=== PATIENT | female | born 1985 | race Caucasian/White ===

== ENCOUNTER 2020-05-17 07:17 | Outpatient (REF) | payer OTHER, SELFPAY ==
[2020-05-17 12:13] LABS: TSH reflex Free T4 < 0.01 mIU/mL (0.32-4.0)
[2020-05-17 12:48] LABS: Free T4 (Free Thyroxine) 1.36 ng/dL (0.71-1.85)
== END 2020-05-17 07:18 | disposition home or self-care (01) ==
LOC: HO.HMGCLDS 07:17
PROVIDERS: PCP Internal Medicine; Visit Provider Internal Medicine
DX: R94.6 Abnormal results of thyroid function studies (principal)
CPT/HCPCS: 36415; 84439; 84443

== ENCOUNTER 2020-06-06 14:46 | Outpatient (REF) | payer OTHER, SELFPAY ==
--- NOTE | 2020-06-06 14:53 | XR_ITS ---
EXAMINATION: XR FINGER, LEFT CLINICAL INFORMATION: Injury left index finger. COMPARISON: None TECHNIQUE: AP view left hand and 2 views left index finger are obtained for a total of 3 views. FINDINGS: There is no definite fracture line. No fracture fragment or destructive process or dislocation. Bony mineralization is normal. There is no joint narrowing or erosive changes. XR/XR finger LT min 2V IMPRESSION: No visible fracture or dislocation.
== END 2020-06-06 14:47 | disposition home or self-care (01) ==
LOC: HO.HMGCX 14:46
PROVIDERS: PCP Internal Medicine; Visit Provider Internal Medicine
DX: S69.92XA Unspecified injury of left wrist, hand and finger(s), initial encounter (principal); X58.XXXA Exposure to other specified factors, initial encounter; Y93.9 Activity, unspecified; Y92.9 Unspecified place or not applicable; Y99.8 Other external cause status
CPT/HCPCS: 73140

== ENCOUNTER 2020-07-05 14:27 | Outpatient (REF) | payer OTHER, SELFPAY ==
[2020-07-05 17:33] LABS: TSH reflex Free T4 0.06 mIU/mL (0.32-4.0)
[2020-07-05 18:29] LABS: Free T4 (Free Thyroxine) 1.15 ng/dL (0.71-1.85)
== END 2020-07-05 14:28 | disposition home or self-care (01) ==
LOC: HO.HMGCLDS 14:27
PROVIDERS: PCP Internal Medicine; Visit Provider Internal Medicine
DX: R79.89 Other specified abnormal findings of blood chemistry (principal)
CPT/HCPCS: 84439; 84443

== ENCOUNTER 2020-08-27 15:16 | Outpatient (REF) | payer OTHER, SELFPAY ==
[2020-08-27 18:13] LABS: Free T4 (Free Thyroxine) 0.95 ng/dL (0.71-1.85)
== END 2020-08-27 15:17 | disposition home or self-care (01) ==
LOC: HO.HMGCLDS 15:16
PROVIDERS: PCP Internal Medicine; Visit Provider Internal Medicine
DX: E03.9 Hypothyroidism, unspecified (principal)
CPT/HCPCS: 36415; 84439; 84443

== ENCOUNTER 2020-08-28 13:55 | Outpatient (REF) | payer OTHER, SELFPAY ==
[2020-08-28 16:16] LABS: Free T4 (Free Thyroxine) 0.97 ng/dL (0.71-1.85); Thyroid Stimulating Hormone 0.28 uIU/mL (0.32-4.0); Vitamin D 25-OH Total 41.7 ng/mL (>30)
[2020-08-29 02:48] LABS: Triiodothyronine T3 Total 75 ng/dL (76-181)
[2020-08-29 06:17] LABS: Thyroglobulin Antibodies <1 IU/mL (< or = 1); Thyroid Peroxidase Antibodies 51 IU/mL (<9)
[2020-09-03 14:48] LABS: Thyroid Stimulating Immunoglob <89 % baseline (<140)
[2020-09-04 22:08] LABS: Thyrotropin Receptor Antibody <1.00 IU/L (<=2.00)
== END 2020-08-28 13:56 | disposition home or self-care (01) ==
LOC: HO.LAB 13:55
PROVIDERS: PCP Internal Medicine; Referring Provider Internal Medicine; Visit Provider Internal Medicine
DX: E03.9 Hypothyroidism, unspecified (principal); E55.9 Vitamin D deficiency, unspecified
CPT/HCPCS: 36415; 82306; 83520; 84439; 84443; 84445; 84480; 86376; 86800; 99202

== ENCOUNTER 2020-09-02 07:53 | Outpatient (REF) | payer OTHER, SELFPAY ==
--- NOTE | 2020-09-02 07:58 | US_ITS ---
EXAMINATION: US THYROID CLINICAL INFORMATION: Hypothyroidism, unspecified. COMPARISON: None. TECHNIQUE: Linear transducer brown-scale and color Doppler examination with attention to the region of the thyroid. FINDINGS: SIZE: Measurements of the thyroid lobes and nodules are given in sagittal, anteroposterior and transverse dimensions respectively. Right Thyroid Lobe: 3.7 x 1.3 x 0.9 cm, volume 2.3 mL. Parenchyma: The gland echotexture is heterogeneous. Thyroid vascularity is normal. Left Thyroid Lobe: 3.2 x 1.1 x 1.0 cm, volume 1.9 mL. Parenchyma: The gland echotexture is heterogeneous. Thyroid vascularity is normal. Isthmus: 0.2 cm in maximum AP dimension. RIGHT THYROID LOBE: No nodules. ISTHMUS: No nodules. LEFT THYROID LOBE: No nodules. NODES: No lymphadenopathy is seen in the tissue surrounding the thyroid gland. US/US thyroid IMPRESSION: Bilateral heterogenous thyroid gland. No thyroid nodule seen.
== END 2020-09-02 07:54 | disposition home or self-care (01) ==
LOC: HO.US 07:53
PROVIDERS: Visit Provider Internal Medicine
DX: E03.9 Hypothyroidism, unspecified (principal)
CPT/HCPCS: 76536

== ENCOUNTER 2020-10-28 14:28 | Outpatient (REF) | payer OTHER, SELFPAY ==
[2020-10-28 17:01] LABS: Free T4 (Free Thyroxine) 0.69 ng/dL (0.71-1.85); Thyroid Stimulating Hormone 2.54 uIU/mL (0.32-4.0)
== END 2020-10-28 14:29 | disposition home or self-care (01) ==
LOC: HO.HMGCLDS 14:28
PROVIDERS: PCP Internal Medicine; Visit Provider Internal Medicine
DX: E03.9 Hypothyroidism, unspecified (principal)
CPT/HCPCS: 36415; 84439; 84443

== ENCOUNTER → 2020-10-30 13:46 | Outpatient (BNVA) | payer OTHER, SELFPAY | PROVIDERS: PCP Internal Medicine; Visit Provider Internal Medicine | DX: E03.9 Hypothyroidism, unspecified (principal); E55.9 Vitamin D deficiency, unspecified | CPT/HCPCS: 99212 ==

== ENCOUNTER 2021-01-27 14:48 | Outpatient (REF) | payer OTHER, SELFPAY ==
[2021-01-27 17:21] LABS: Free T4 (Free Thyroxine) 0.89 ng/dL (0.71-1.85); Thyroid Stimulating Hormone 2.22 uIU/mL (0.32-4.0)
== END 2021-01-27 14:49 | disposition home or self-care (01) ==
LOC: HO.HMGCLDS 14:48
PROVIDERS: PCP Internal Medicine; Visit Provider Internal Medicine
DX: E03.9 Hypothyroidism, unspecified (principal)
CPT/HCPCS: 36415; 84439; 84443

== ENCOUNTER 2021-04-23 15:21 | Outpatient (REF) | payer OTHER, SELFPAY ==
[2021-04-23 16:39] LABS: Appearance Urine CLEAR; Color Urine YELLOW; Glucose Urine UA NEG (NEG); Leukocyte Esterase Urine NEG (NEG); Nitrite Urine NEG (NEG); UACC Culture Trigger NO; Urine Blood 2+ (NEG); Urine Ketones NEG (NEG); Urine Protein NEG (NEG-TRACE)
[2021-04-23 16:58] LABS: Mucus Urine 2+ /LPF; WBC Urine 0 /HPF (0-4)
== END 2021-04-23 15:22 | disposition home or self-care (01) ==
LOC: HO.HMGCLDS 15:21
PROVIDERS: PCP Internal Medicine; Visit Provider Internal Medicine
DX: R30.0 Dysuria (principal)
CPT/HCPCS: 81001

== ENCOUNTER 2021-05-22 13:59 | Outpatient (REF) | payer OTHER, SELFPAY ==
[2021-05-22 17:02] LABS: Free T4 (Free Thyroxine) 0.87 ng/dL (0.71-1.85); Thyroid Stimulating Hormone 4.51 uIU/mL (0.32-4.0); Vitamin D 25-OH Total 41.3 ng/mL (>30)
== END 2021-05-22 14:00 | disposition home or self-care (01) ==
LOC: HO.HMGCLDS 13:59
PROVIDERS: PCP Internal Medicine; Visit Provider Internal Medicine
DX: E03.9 Hypothyroidism, unspecified (principal); E55.9 Vitamin D deficiency, unspecified
CPT/HCPCS: 36415; 82306; 84439; 84443

== ENCOUNTER 2021-06-26 14:24 | Outpatient (REF) | payer OTHER, SELFPAY ==
[2021-06-26 16:32] LABS: Alanine Aminotransferase 15 U/L (0-31); Alkaline Phosphatase 47 U/L (39-117); Aspartate Amino Transferase 23 U/L (5-31); Bilirubin Total 0.5 mg/dL (0.0-1.0); Blood Urea Nitrogen 8 mg/dL (9-16); Calcium 9.4 mg/dL (8.4-10.2); Estimated Glomerular Filt Rate > 60; Glucose Random 85 mg/dL (60-115); Total Protein 6.6 g/dL (6.5-8.0)
[2021-06-26 16:41] LABS: Anion Gap 13 (12-20); Carbon Dioxide 28 mmol/L (22-29); Chloride 102 mmol/L (96-108); Potassium 3.9 mmol/L (3.3-5.1); Sodium 139 mmol/L (135-145)
[2021-07-04 11:11] LABS: Transglutaminase Ab IgG <1.0 U/mL; Transglutaminase IgA <1.0 U/mL
[2021-07-04 14:41] LABS: Gliadin Deamidated IgA Ab 3.2 U/mL; Gliadin Deamidated IgG Ab <1.0 U/mL
== END 2021-06-26 14:25 | disposition home or self-care (01) ==
LOC: HO.LAB 14:24
PROVIDERS: PCP Internal Medicine; Referring Provider Internal Medicine; Visit Provider Nurse Practitioner
DX: K59.04 Chronic idiopathic constipation (principal); R14.0 Abdominal distension (gaseous)
CPT/HCPCS: 36415; 80053; 83516; 99202

== ENCOUNTER 2021-07-03 14:08 | Outpatient (REF) | payer OTHER, SELFPAY | END 2021-07-03 14:09 | disposition home or self-care (01) | LOC: HO.HMGCLNP 14:08 | PROVIDERS: Visit Provider Nurse Practitioner | DX: K59.04 Chronic idiopathic constipation (principal); Z11.0 Encounter for screening for intestinal infectious diseases | CPT/HCPCS: 87338 ==

== ENCOUNTER 2021-07-18 11:10 | Outpatient (REF) | payer OTHER, SELFPAY ==
[2021-07-18 14:47] LABS: Free T4 (Free Thyroxine) 0.91 ng/dL (0.71-1.85); Thyroid Stimulating Hormone 2.76 uIU/mL (0.32-4.0)
== END 2021-07-18 11:11 | disposition home or self-care (01) ==
LOC: HO.HMGCLDS 11:10
PROVIDERS: PCP Internal Medicine; Visit Provider Internal Medicine
DX: E03.9 Hypothyroidism, unspecified (principal)
CPT/HCPCS: 36415; 84439; 84443

== ENCOUNTER 2021-07-28 07:56 | Outpatient (REF) | payer OTHER, SELFPAY ==
--- NOTE | ~2021-07-28 | US_ITS ---
EXAMINATION: US ABDOMEN COMPLETE CLINICAL INFORMATION: Chronic idiopathic constipation. COMPARISON: X-ray abdomen KUB 08/02/2018. TECHNIQUE: Real-time imaging of the abdominal viscera. FINDINGS: PANCREAS: Normal. ABDOMINAL AORTA: The proximal, mid, and distal segments are normal in caliber. INFERIOR VENA CAVA: Visualized portions are normal. LIVER: Normal. The liver is normal in size. The liver contour is normal. Parenchymal echogenicity is normal. No focal hepatic lesion. There is no intrahepatic biliary duct dilatation seen. GALLBLADDER: Normal. The gallbladder is physiologically distended without evidence of stones, sludge, polyps, wall thickening or pericholecystic fluid. COMMON BILE DUCT: Normal in caliber measuring 0.5 cm in diameter. RIGHT KIDNEY: No hydronephrosis. No renal calculi or focal parenchymal lesions. The kidney measures 12.0 cm in maximum dimension. LEFT KIDNEY: Normal. No hydronephrosis. No renal calculi or focal parenchymal lesions. The kidney measures 11.3 cm in maximum dimension. SPLEEN: Normal. The spleen measures 9.4 cm in maximum dimension. FREE FLUID: None. US/US abdomen complete IMPRESSION: Unremarkable exam.
[2021-07-28 08:11] LABS: MANUAL DIFF FLAG NO
[2021-07-28 08:29] LABS: Basophils Percent Auto 0.5 % (0-2); Eosinophils Absolute Auto 0.1 X10*3/uL (0.0-0.4); Eosinophils Percent Auto 1.6 % (0-4); Hematocrit 42.5 % (37.0-47.0); Hemoglobin 14.1 g/dl (12.0-16.0); Imm Gran Abs Auto 0.03 X10*3/uL (0.00-0.03); Imm Gran Pct Auto 0.3 % (0.0-0.4); Lymphocytes Absolute Auto 1.7 X10*3/uL (1.2-4.9); Lymphocytes Percent Auto 18.8 % (20-40); Mean Corpuscular HGB Conc 33.2 g/dl (31.0-35.0); Mean Corpuscular Hemoglobin 31.5 pg (27.0-33.0); Mean Corpuscular Volume 95.1 fL (80.0-98.0); Mean Platelet Volume 10.8 fL (9.4-12.3); Monocytes Absolute Auto 0.8 X10*3/uL (0.1-1.2); Monocytes Percent Auto 8.5 % (2-11); Neutrophils Absolute Auto 6.2 x10*3/uL (2.0-8.3); Neutrophils Percent Auto 70.3 % (45-73); Platelet Count 298 X10*3/uL (160-400); Red Blood Count 4.47 X10*6/uL (4.20-5.50); Red Cell Distribution Width 11.9 % (11.0-16.0); White Blood Count 8.8 X10*3/uL (4.8-10.8)
[2021-07-28 08:55] LABS: Alanine Aminotransferase 15 U/L (0-31); Albumin Level 4.3 g/dL (3.5-5.0); Alkaline Phosphatase 51 U/L (39-117); Anion Gap 11 (12-20); Aspartate Amino Transferase 23 U/L (5-31); Blood Urea Nitrogen 12 mg/dL (9-16); Calcium 9.5 mg/dL (8.4-10.2); Carbon Dioxide 26 mmol/L (22-29); Chloride 105 mmol/L (96-108); Cholesterol 201 mg/dL; Estimated Glomerular Filt Rate > 60; Glucose Fasting 85 mg/dL (60-99); HDL Cholesterol 62 mg/dL; LDL Cholesterol Calculated 124 mg/dl; Potassium 4.1 mmol/L (3.3-5.1); Sodium 138 mmol/L (135-145); Total Protein 7.3 g/dL (6.5-8.0); Triglycerides 78 mg/dL
== END 2021-07-28 07:57 | disposition home or self-care (01) ==
LOC: HO.US 07:56
PROVIDERS: Absent Provider Internal Medicine; PCP Internal Medicine; Visit Provider Nurse Practitioner
DX: Z00.01 Encounter for general adult medical examination with abnormal findings (principal); K59.04 Chronic idiopathic constipation; E03.9 Hypothyroidism, unspecified
CPT/HCPCS: 36415; 76700; 80053; 80061; 85025

== ENCOUNTER 2021-08-06 18:36 | Outpatient (REF) | payer OTHER, SELFPAY | END 2021-08-06 18:37 | disposition home or self-care (01) | LOC: HO.LNP 18:36 | PROVIDERS: Visit Provider Physician Assistant Medical | DX: J02.9 Acute pharyngitis, unspecified (principal) | CPT/HCPCS: 87071 ==

== ENCOUNTER → 2021-09-01 16:03 | Outpatient (BNVA) | payer OTHER, SELFPAY | PROVIDERS: PCP Internal Medicine; Referring Provider Internal Medicine; Visit Provider Nurse Practitioner | DX: K59.04 Chronic idiopathic constipation (principal); R14.0 Abdominal distension (gaseous) | CPT/HCPCS: 99212 ==

== ENCOUNTER → 2021-09-25 16:08 | Outpatient (BNVA) | payer OTHER, SELFPAY | PROVIDERS: PCP Internal Medicine; Referring Provider Internal Medicine; Visit Provider Nurse Practitioner | DX: K59.04 Chronic idiopathic constipation (principal) | CPT/HCPCS: 99212 ==

== ENCOUNTER 2021-12-30 14:38 | Outpatient (REF) | payer OTHER, SELFPAY ==
[2021-12-30 17:12] LABS: Free T4 (Free Thyroxine) 0.87 ng/dL (0.71-1.85); Thyroid Stimulating Hormone 1.96 uIU/mL (0.32-4.0); Vitamin D 25-OH Total 28.6 ng/mL (>30)
== END 2021-12-30 14:39 | disposition home or self-care (01) ==
LOC: HO.HMGCLDS 14:38
PROVIDERS: PCP Internal Medicine; Visit Provider Internal Medicine
DX: E55.9 Vitamin D deficiency, unspecified (principal); E03.9 Hypothyroidism, unspecified
CPT/HCPCS: 36415; 82306; 84439; 84443

== ENCOUNTER → 2022-01-01 11:21 | Outpatient (BNVA) | payer OTHER, SELFPAY | PROVIDERS: PCP Internal Medicine; Visit Provider Internal Medicine | DX: E03.9 Hypothyroidism, unspecified (principal) ==

== ENCOUNTER 2022-01-29 15:20 | Outpatient (REF) | payer OTHER, SELFPAY ==
--- NOTE | ~2022-01-29 | US_ITS ---
EXAMINATION: US THYROID CLINICAL INFORMATION: Hypothyroidism, unspecified. COMPARISON: US thyroid 09/02/2020. TECHNIQUE: Linear transducer grayscale and color Doppler examination with attention to the region of the thyroid. FINDINGS: SIZE: Measurements of the thyroid lobes and nodules are given in sagittal, anteroposterior and transverse dimensions respectively. Right Thyroid Lobe: 3.9 x 1.3 x 1.3 cm, volume 3.5 mL. Previously 3.7 x 1.3 x 0.9 cm, volume 2.3 mL. Parenchyma: The gland echotexture is heterogeneous. Thyroid vascularity is normal. Left Thyroid Lobe: 3.5 x 1.1 x 1.2 cm, volume 2.4 mL. Previously 3.2 x 1.1 x 1.0 cm, volume 1.9 mL. Parenchyma: The gland echotexture is heterogeneous. Thyroid vascularity is normal. Isthmus: 0.2 cm in maximum AP dimension. Previously 0.2 cm. No focal thyroid nodule is seen. NODES: No lymphadenopathy is seen in the tissue surrounding the thyroid gland. US/US thyroid IMPRESSION: Unremarkable thyroid ultrasound.. ACR TI-RADS RECOMMENDATION REFERENCE: Ultrasound-guided fine-needle aspiration, followup ultrasound, no further follow up. * TR1 (0 point) and TR 2 (2 points): No FNA or follow up * TR3 (3 points): FNA if more than or equal to 2.5 cm in maximum dimension, followup ultrasound in 1, 3 and 5 years if 1.5 to 2.4 cm in maximum dimension. * TR4 (4-6 points): FNA if more than or equal to 1.5 cm in maximum dimension, followup ultrasound in 1, 2, 3 and 5 years if 1 to 1.4 cm in maximum dimension. * TR5 (more than or equal to 7 points): FNA if more than or equal to 1 cm in maximum dimension, followup ultrasound every year for 5 years if 0.5 to 0.9 cm in maximum dimension. * TR3, TR4 or TR5 nodules that are below the size threshold for follow up receive no follow up.
== END 2022-01-29 15:21 | disposition home or self-care (01) ==
LOC: HO.HMGCX 15:20
PROVIDERS: Visit Provider Internal Medicine
DX: E03.9 Hypothyroidism, unspecified (principal)
CPT/HCPCS: 76536

== ENCOUNTER 2022-02-27 07:08 | Outpatient (REF) | payer OTHER, SELFPAY ==
[2022-02-27 12:18] LABS: Free T4 (Free Thyroxine) 0.91 ng/dL (0.71-1.85); Thyroid Stimulating Hormone 3.86 uIU/mL (0.32-4.0)
== END 2022-02-27 07:09 | disposition home or self-care (01) ==
LOC: HO.HMGCLDS 07:08
PROVIDERS: Visit Provider Internal Medicine
DX: E03.9 Hypothyroidism, unspecified (principal)
CPT/HCPCS: 36415; 84439; 84443

== ENCOUNTER → 2022-03-02 13:46 | Outpatient (BNVA) | payer OTHER, SELFPAY | PROVIDERS: PCP Internal Medicine; Visit Provider Internal Medicine | DX: E03.9 Hypothyroidism, unspecified (principal); E55.9 Vitamin D deficiency, unspecified; Z79.899 Other long term (current) drug therapy | CPT/HCPCS: 99212 ==

== ENCOUNTER 2022-03-24 14:09 | Outpatient (REF) | payer OTHER, SELFPAY ==
[2022-03-24 17:16] LABS: Folate 16.4 ng/mL (> or = 4.0); Vitamin B12 453 pg/mL (200-900)
== END 2022-03-24 14:10 | disposition home or self-care (01) ==
LOC: HO.HMGCLDS 14:09
PROVIDERS: PCP Internal Medicine; Visit Provider Nurse Practitioner Family
DX: G57.92 Unspecified mononeuropathy of left lower limb (principal)
CPT/HCPCS: 36415; 82607; 82746

== ENCOUNTER 2022-04-24 14:37 | Outpatient (REF) | payer OTHER, SELFPAY ==
[2022-04-24 17:12] LABS: Thyroid Stimulating Hormone 1.63 uIU/mL (0.32-4.0); Vitamin D 25-OH Total 36.3 ng/mL (>30)
== END 2022-04-24 14:38 | disposition home or self-care (01) ==
LOC: HO.HMGCLDS 14:37
PROVIDERS: Visit Provider Internal Medicine
DX: E55.9 Vitamin D deficiency, unspecified (principal); E03.9 Hypothyroidism, unspecified
CPT/HCPCS: 36415; 82306; 84439; 84443

== ENCOUNTER 2022-07-01 13:59 | Outpatient (REF) | payer OTHER, SELFPAY ==
--- NOTE | 2022-07-01 09:00 | EMG_ITS ---
Please see scanned EMG / Nerve Conduction Report. MTDD
== END 2022-07-01 14:00 | disposition home or self-care (01) ==
LOC: HO.NEURO 13:59
PROVIDERS: Visit Provider Internal Medicine
DX: R20.2 Paresthesia of skin (principal)
CPT/HCPCS: 95885; 95910

== ENCOUNTER 2022-07-14 12:24 | Outpatient (REF) | payer OTHER, SELFPAY ==
[2022-07-14 12:31] LABS: MANUAL DIFF FLAG NO
[2022-07-14 13:06] LABS: Basophils Absolute Auto 0.1 X10*3/uL (0.0-0.2); Basophils Percent Auto 0.7 % (0-2); Eosinophils Absolute Auto 0.1 X10*3/uL (0.0-0.4); Eosinophils Percent Auto 1.6 % (0-4); Hematocrit 40.2 % (37.0-47.0); Hemoglobin 13.2 g/dl (12.0-16.0); Imm Gran Abs Auto 0.03 X10*3/uL (0.00-0.03); Imm Gran Pct Auto 0.3 % (0.0-0.4); Lymphocytes Absolute Auto 1.8 X10*3/uL (1.2-4.9); Lymphocytes Percent Auto 19.6 % (20-40); Mean Corpuscular HGB Conc 32.8 g/dl (31.0-35.0); Mean Corpuscular Hemoglobin 31.2 pg (27.0-33.0); Mean Platelet Volume 11.2 fL (9.4-12.3); Monocytes Absolute Auto 0.5 X10*3/uL (0.1-1.2); Monocytes Percent Auto 6.1 % (2-11); Neutrophils Absolute Auto 6.4 x10*3/uL (2.0-8.3); Neutrophils Percent Auto 71.7 % (45-73); Platelet Count 335 X10*3/uL (160-400); Red Blood Count 4.23 X10*6/uL (4.20-5.50); Red Cell Distribution Width 11.8 % (11.0-16.0); White Blood Count 8.9 X10*3/uL (4.8-10.8)
[2022-07-14 13:35] LABS: Alanine Aminotransferase 14 U/L (0-31); Alkaline Phosphatase 58 U/L (39-117); Anion Gap 12 (12-20); Bilirubin Total 0.5 mg/dL (0.0-1.0); Blood Urea Nitrogen 7 mg/dL (9-16); Calcium 9.3 mg/dL (8.4-10.2); Carbon Dioxide 29 mmol/L (22-29); Chloride 104 mmol/L (96-108); Estimated Glomerular Filt Rate > 60; Glucose Random 85 mg/dL (60-115); Potassium 4.1 mmol/L (3.3-5.1); Sodium 141 mmol/L (135-145); Total Protein 6.8 g/dL (6.5-8.0)
[2022-07-14 14:04] LABS: Aspartate Amino Transferase 19 U/L (5-31)
== END 2022-07-14 12:25 | disposition home or self-care (01) ==
LOC: HO.LAB 12:24
PROVIDERS: PCP Internal Medicine; Visit Provider Nurse Practitioner
DX: Z01.818 Encounter for other preprocedural examination (principal); R10.9 Unspecified abdominal pain; K59.04 Chronic idiopathic constipation
CPT/HCPCS: 36415; 80053; 85025; 99212

== ENCOUNTER 2022-07-29 13:29 | Outpatient (REF) | payer OTHER, SELFPAY ==
--- NOTE | ~2022-07-29 | CT_ITS ---
EXAMINATION: CT ABDOMEN AND PELVIS WITH CONTRAST CLINICAL INFORMATION: Chronic idiopathic constipation COMPARISON: Abdominal ultrasound July 2021 and pelvic ultrasound August 2018 TECHNIQUE: Multidetector volumetric images were obtained from the superior aspect of the liver through the pubic symphysis following administration 85 mL of Omnipaque 350 intravenous contrast. Sagittal and coronal reformatted images were obtained on the technologist's workstation. Oral contrast: Yes This CT examination was performed using dose optimization techniques as appropriate, variously including the following: *Automated exposure control *Adjustment of mA and/or kV according to patient size (this includes techniques or standardized protocols for targeted exams where dose is matched to indication/reason for exam; i.e. extremities or head) *Use of iterative reconstruction technique DLP: 480 mGy-cm FINDINGS: LUNG BASES: The visualized lung bases are unremarkable. LIVER, GALLBLADDER, AND BILIARY TREE: The liver is normal in size, shape, and attenuation. No focal hepatic lesion or biliary ductal dilatation is present. The gallbladder is unremarkable with no evidence of radiopaque gallstones, gallbladder wall thickening, or obvious pericholecystic inflammatory changes. PANCREAS: Unremarkable. SPLEEN: Unremarkable. ADRENAL GLANDS: Unremarkable. KIDNEYS AND URETERS: The kidneys are normal in size, shape, and attenuation. No hydronephrosis, hydroureter, or calculi seen. No perinephric stranding. BLADDER: Unremarkable. GASTROINTESTINAL TRACT: There is stool throughout the colon suggestive of constipation. There is no abnormal bowel wall thickening mass or evidence of obstruction. The small and large bowel are otherwise unremarkable. The appendix is unremarkable. ABDOMINAL WALL: No significant hernia is appreciated. LYMPH NODES: Normal. VASCULAR: Unremarkable. PELVIC VISCERA: Unremarkable. OSSEOUS STRUCTURES: Unremarkable. CT/CT abdomen pelvis w IV con IMPRESSION: Constipation. Otherwise unremarkable exam. Fleischner guidelines were followed.
[2022-07-29] MEDS: Barium Sulfate Oral (Mocha) 450 ML ORAL.SUSP 900 ML PO (15:39)
[2022-07-29] MEDS: iohexoL 350 MG/ML 100 ML INFUS..BTL IV (15:40)
== END 2022-07-29 13:30 | disposition home or self-care (01) ==
LOC: HO.CT 13:29
PROVIDERS: PCP Internal Medicine; Visit Provider Nurse Practitioner
DX: K59.04 Chronic idiopathic constipation (principal); R10.9 Unspecified abdominal pain
CPT/HCPCS: 74177; Q9967

== ENCOUNTER 2022-08-31 13:26 | Outpatient (REF) | payer OTHER, SELFPAY ==
[2022-08-31 17:04] LABS: Free T4 (Free Thyroxine) 1.09 ng/dL (0.71-1.85); Thyroid Stimulating Hormone 0.61 uIU/mL (0.32-4.0)
== END 2022-08-31 13:27 | disposition home or self-care (01) ==
LOC: HO.HMGCLDS 13:26
PROVIDERS: PCP Internal Medicine; Visit Provider Internal Medicine
DX: E03.9 Hypothyroidism, unspecified (principal); E55.9 Vitamin D deficiency, unspecified
CPT/HCPCS: 36415; 82306; 84439; 84443

== ENCOUNTER → 2022-10-21 10:48 | Outpatient (BNVA) | payer OTHER, SELFPAY | PROVIDERS: PCP Internal Medicine; Visit Provider Internal Medicine | DX: E03.9 Hypothyroidism, unspecified (principal); E55.9 Vitamin D deficiency, unspecified; Z79.899 Other long term (current) drug therapy | CPT/HCPCS: 99212 ==

== ENCOUNTER 2023-04-02 12:52 | Outpatient (AMB) | payer OTHER, SELFPAY ==
[2023-04-02 12:54] VITALS: BP 122/86; PULSE 88; O2SAT 98
--- NOTE | 2023-04-02 12:54 | A.OFFPC_ITS ---
Vital Signs 04/02/23 12:54 Height 5 ft 2.5 in BMI Reason not done Patient refused/unable BP 122/86 Blood Pressure Location Lt brachial Position Sitting Pulse 88 Pulse Source Pulse Oximeter Pulse Oximetry (%) 98 Oxygen Delivery Method Room Air Intake Visit Reasons: mole on left forearm Allergies No Known Allergies [No Known Allergies*] Allergy (Verified 04/02/23 12:58) Medication List - Last Reconciled 04/02/23 by Ana Stevens MD levothyroxine 100 mcg PO DAILY 90 days sennosides (senna) 17.2 mg (2 x 8.6 mg) PO BEDTIME 30 days valacyclovir 2,000 mg (2 x 1 gram) PO BID 1 day Tobacco use date assessed: 04/02/23 Dental Screening Dental Screen Date: 04/02/23 Did you have a dental visit in the last 12 months?: Yes Did you have a dental problem in the last 6 months where you did not have access to dental care?: No Was dental information given to patient?: No HPI mole on left forearm HPI Details Patient is a 37-year-old female came in today with a chief complaint change in mood and is in need of referral to Dermatology. She is also complaining of feeling palpitations off and on especially at night She was seeing Endocrinology for hypothyroidism but she is discharged from Endocrinology to primary care. She is due for blood test order placed to check TSH level We also did EKG today which showed normal sinus rhythm no acute findings. Patient admits to feeling anxious she has never taken any medication but she is willing to try the medication now. I am starting her on Lexapro 5 mg she is to continue taking that until she sees me in August for physical exam. If there is any problem any side effects patient is to stop the medication and reach out to me. [facility] Medical History Bowel habit changes Hyperthyroidism Hypothyroid Hypothyroidism Injury of finger of left hand Vitamin D deficiency Surgical History H/O LEEP History of section History of endometrial biopsy Family History Father No problems noted. Mother HTN (hypertension) Maternal Grandfather No problems noted. Maternal Uncle No problems noted. Paternal Grandfather Diabetes mellitus CVD (cardiovascular disease) Paternal Grandmother No problems noted. Brother No problems noted. Sister Thyroid cancer Hypothyroidism Son No problems noted. Son No problems noted. Social History Household Members: Spouse and Children Housing: House Alcohol intake: never Patient Tobacco Use Status: Never used Tobacco e-Cigarette/Vaping Use: Never Used Current occupational status: employed Cognitive needs: No Hearing needs: No Vision needs: Yes (contacts) Questionnaire Thrive Questionnaire Date Thrive assessed: 08/05/22 SHAHEED-7 AMB Questionnaire SHAHEED-7 Date SHAHEED - 7 assessed: 08/05/22 Source: Developed by Drs. Dc Keating, Kaelyn Tian, Juliano Sierra and colleagues, with an educational aba from [employer]. Review of Systems Const Denies chills and Denies fever(s) ENT Denies epistaxis and Denies nasal discharge Card Denies chest pain Resp Denies chest congestion, Denies cough and Denies hemoptysis GI Denies diarrhea and Denies nausea Skin/Breast Denies rash Neuro Reports no additional complaints Psych Reports no additional complaints Endo Reports no additional complaints Physical exam (Primary Care) Vital Signs: Last Vital Signs Pulse 88 04/02/23 12:54 BP 122/86 04/02/23 12:54 Pulse Ox 98 04/02/23 12:54 Oxygen Delivery Method Room Air 04/02/23 12:54 Tobacco/Smoking Status: Tobacco use Status Tobacco use date assessed 04/02/23 04/02/23 13:00 Patient Tobacco Use Status Never used Tobacco 04/02/23 12:57 e-Cigarette/Vaping Use Never Used 04/02/23 12:57 Thrive Assessment: Date of Thrive Assessment Date Thrive assessed 08/05/22 04/02/23 12:57 Const General: cooperative, comfortable and no acute distress Orientation/consciousness: patient oriented x3 HENMT Head: Yes normocephalic Eyes General: appearance normal, both eyes and all related structures Neck Neck: Yes supple Resp Effort & Inspection: normal respiratory effort, no cough and no stridor Cardio Rhythm: regular rhythm Heart sounds: S1 normal heart sound present and S2 normal heart sound present Skin Other: Two raised moves in the back which looks more like a skin tags General skin exam: turgor normal Neuro General: patient oriented x3, tone normal and moves all extremities Extrem Right lower extremity: no edema Left lower extremity: no edema Office Procedures EKG [id number], Complete Assessment and Plan Assessment & Plan (1) Hypothyroidism: Code(s): E03.9 - Hypothyroidism, unspecified Qualifiers: Hypothyroidism type: unspecified Qualified Code(s): E03.9 - Hypothyroidism, unspecified (2) Palpitations: Code(s): R00.2 - Palpitations (3) Change in mole: Code(s): D22.9 - Melanocytic nevi, unspecified (4) Anxiety, generalized: Code(s): F41.1 - Generalized anxiety disorder Plan Patient is a 37-year-old female came in today with a chief complaint change in mood and is in need of referral to Dermatology. She is also complaining of feeling palpitations off and on especially at night She was seeing Endocrinology for hypothyroidism but she is discharged from Endocrinology to primary care. She is due for blood test order placed to check TSH level We also did EKG today which showed normal sinus rhythm no acute findings. Patient admits to feeling anxious she has never taken any medication but she is willing to try the medication now. I am starting her on Lexapro 5 mg she is to continue taking that until she sees me in August for physical exam. If there is any problem any side effects patient is to stop the medication and reach out to me. Orders: Orders TSH reflex Free T4 Today E03.9 - Hypothyroidism, unspecified AMB EKG-In Office Today R00.2 - Palpitations Referrals Dermatology Referral D22.9 - Melanocytic nevi, unspecified Medications: New escitalopram oxalate (Lexapro) 5 mg PO DAILY 90 tabs 0RF Coding Level of Care Code Est Pt Level 4 (46351) Diagnoses Hypothyroidism E03.9 Hypothyroidism type: unspecified Palpitations R00.2 Change in mole D22.9 Anxiety, generalized F41.1 CPT Codes EKG - CPT: 53148-[id number], Complete ([id number])
== END 2023-04-02 14:43 | disposition home or self-care (01) ==
PROVIDERS: PCP Internal Medicine; Visit Provider Internal Medicine
DX: E03.9 Hypothyroidism, unspecified (principal); R00.2 Palpitations; D22.9 Melanocytic nevi, unspecified; F41.1 Generalized anxiety disorder
CPT/HCPCS: 93000; 99214

== ENCOUNTER 2023-04-02 14:01 | Outpatient (REF) | payer OTHER, SELFPAY ==
[2023-04-02 17:11] LABS: TSH reflex Free T4 2.16 uIU/mL (0.32-4.0)
== END 2023-04-02 14:02 | disposition home or self-care (01) ==
LOC: HO.HMGCLDS 14:01
PROVIDERS: PCP Internal Medicine; Visit Provider Internal Medicine
DX: E03.9 Hypothyroidism, unspecified (principal)
CPT/HCPCS: 36415; 84443

== ENCOUNTER 2023-06-18 15:02 | Outpatient (AMB) | payer OTHER, SELFPAY ==
--- NOTE | 2023-06-18 15:02 | AM.OFFVISNUR ---
Intake Intake Visit Reasons: Flu Shot Intake Note: pt is here for her flu vaccine Allergies No Known Allergies [No Known Allergies*] Allergy (Verified 06/18/23 15:03) Office Procedures Flu Questionnaire Does the patient have a severe egg allergy?: No Does the patient have severe life threatening allergies?: No Does the patient have a fever or illness today?: No Has the patient ever had Guillain-[place] Syndrome?: No Has the patient ever had any past reaction to a flu shot?: No Immunizations flu vacc [id number] 6mos up(PF) 60 mcg(15 mcgx4)/0.5 mL IM syringe Performing Provider: Ana Stevens MD Performing Location: [facility] [place] [facility] Administered by: Cynthia Goldstein CMA on 06/18/23 15:08 Dose Route Admin Location Dispensed Lot Number Expiration Date [employer] 0.5 mL IM Left Deltoid 0.5 mL [id number] 02/13/24 29683-345-35 Energy VIS Given Date VIS Provided VIS Publication Date 06/18/23 Single Vaccine 21 Eligibility Eligibility Date Funding Source Not [facility] Eligible 06/18/23 Private Coding Assessment & Plan Assessment & Plan Orders: Orders Influenza [id number] Immunization Today Z23 - Encounter for immunization
== END 2023-06-18 15:16 | disposition home or self-care (01) ==
LOC: HO.HMGC 15:02
PROVIDERS: PCP Internal Medicine; Visit Provider Internal Medicine
DX: Z23 Encounter for immunization (principal)
CPT/HCPCS: 90471; 90686

== ENCOUNTER 2023-08-20 15:38 | Outpatient (AMB) | payer OTHER, SELFPAY ==
--- NOTE | 2023-08-20 15:41 | MHC.PC.OV ---
Vital Signs 08/20/23 15:42 Height 5 ft 2.5 in Weight 176 lb 8 oz BMI 31.8 BP 126/84 Blood Pressure Location Lt brachial Position Sitting Pulse 82 Pulse Source Pulse Oximeter Pulse Oximetry (%) 99 Oxygen Delivery Method Room Air Intake Visit Reasons: Annual PE Allergies No Known Allergies [No Known Allergies*] Allergy (Verified 08/20/23 15:42) Medication List - Last Reconciled 08/20/23 by Ana Stevens MD escitalopram oxalate (Lexapro) 5 mg PO DAILY levothyroxine 100 mcg PO DAILY 90 days valacyclovir 2,000 mg (2 x 1 gram) PO BID 1 day Tobacco use date assessed: 08/20/23 Dental Screening Dental Screen Date: 08/20/23 Did you have a dental visit in the last 12 months?: Yes Did you have a dental problem in the last 6 months where you did not have access to dental care?: No Was dental information given to patient?: Patient has dentist HPI Annual PE HPI Details Patient is a 38-year-old female who continued to have palpitations Patient also have anxiety disorder and is doing better with Lexapro 5 mg I am ordering Holter monitor for the patient and referral placed for her to see a web applications administrator Patient sees [facility] breast exam is through them She is due for labs patient is currently on 88 mcg of levothyroxine for hypothyroidism Follow-up 6 months physical exam 1 year [facility] Medical History Bowel habit changes Vitamin D deficiency Hyperthyroidism Hypothyroidism Injury of finger of left hand Hypothyroid Surgical History History of endometrial biopsy History of section H/O LEEP Family History Father No problems noted. Mother HTN (hypertension) Maternal Grandfather No problems noted. Maternal Uncle No problems noted. Paternal Grandfather Diabetes mellitus CVD (cardiovascular disease) Paternal Grandmother No problems noted. Brother No problems noted. Sister Thyroid cancer Hypothyroidism Son No problems noted. Son No problems noted. Social History Household Members: Spouse and Children Housing: House Alcohol intake: never Patient Tobacco Use Status: Never used Tobacco e-Cigarette/Vaping Use: Never Used Current occupational status: employed Cognitive needs: No Hearing needs: No Vision needs: Yes (contacts) Questionnaire PHQ-9 Over the last 2 weeks, how often have you been bothered by any of the following problems? 1. Little interest or pleasure in doing things: not at all 2. Feeling down, depressed, or hopeless: not at all 3. Trouble falling or staying asleep, or sleeping too much: not at all 4. Feeling tired or having little energy: several days 5. Poor appetite or overeating: not at all 6. Feeling bad about yourself - or that you are a failure or have let yourself or your family down: not at all 7. Trouble concentrating on things, such as reading the newspaper or watching television: not at all 8. Moving or speaking so slowly that other people could have noticed. Or the opposite - being so fidgety or restless that you have been moving around a lot more than usual: not at all 9. Thoughts that you would be better off or of hurting yourself in some way: not at all Total score: 1 Depression Screening Interpretation: Negative Depression Screening Done: Yes 60417 - PHQ-9 Billing: Yes Source: Developed by Drs. Dc Keating, Kaelyn Tian, Juliano Sierra and colleagues, with an educational aba from [employer]. Thrive Questionnaire Date Thrive assessed: 08/20/23 I am a: Patient What is your living situation today?: I have a steady place to live Within the past 12 months, did the food you bought not last and you didn't have the money to get more?: Never true Within the past 12 months, did you worry whether your food would run out before you got money to buy more?: Never true Do you have trouble paying for medicines?: No Do you have trouble getting transportation to medical appointments?: No Do you have trouble paying your heating and electricity bill?: No Do you have trouble taking care of your child, family member or friend?: No Do you have trouble with day-to-day activities such as bathing, preparing meals, shopping, managing finances, etc.?: No Are you currently unemployed and looking for a job?: No Are you interested in more education?: No Please select the resources that you would like help with: None Currently or been in a relationship where the following occur: no concerns reported AUDIT C Alcohol Use Questionnaire (AUDIT-C) 1. How often do you have a drink containing alcohol?: 2-4 times a month 2. How many drinks containing alcohol do you have on a typical day when you are drinking?: 1 or 2 3. How often do you have six or more drinks on one occasion?: Never Total Score: 2 SHAHEED-7 AMB Questionnaire SHAHEED-7 Date SHAHEED - 7 assessed: 08/20/23 Feeling nervous, anxious, or on edge: 1 = Several days Not being able to stop or control worryin = Not at all Worrying too much about different things: 0 = Not at all Trouble relaxin = Several days Being so restless that it is hard to sit still: 0 = Not at all Becoming easily annoyed or irritable: 0 = Not at all Feeling afraid as if something awful might happen: 0 = Not at all Total SHAHEED-7 score (0-4 normal; 5-9 mild; 10-14 moderate; 15-21 severe): 2 Source: Developed by Drs. Dc Keating, Kaelyn Tian, Juliano Sierra and colleagues, with an educational aba from [employer]. SHAHEED-7 Assessment Billing SHAHEED-7 Assessment Tool: SHAHEED-7 Assessment 59430 Review of Systems Const Denies chills, Denies fever(s) and Denies headache(s) Eyes Denies blurry vision ENT Denies headache(s), Denies nasal discharge, Denies nasal obstruction, Denies odynophagia and Denies sinus pain Card Denies chest pain at rest and Denies chest pain with activity Resp Denies cough and Denies hemoptysis GI Denies diarrhea, Denies odynophagia, Denies vomiting and Denies hematemesis Reports as per HPI Musc Denies abnormal gait Skin/Breast Reports as per HPI Neuro Denies Neuro-related abnormal movements, Denies Abnormal speech present, Denies abnormal gait, Denies headache(s) and Denies Sensory deficit (Neuro) Psych Denies mood swings and Denies paranoia Endo Reports as per HPI Oswaldo/Lymph Reports as per HPI Aller/Immun Reports as per HPI Physical exam (Primary Care) Vital Signs: Last Vital Signs Pulse 82 08/20/23 15:42 BP 126/84 08/20/23 15:42 Pulse Ox 99 08/20/23 15:42 Oxygen Delivery Method Room Air 08/20/23 15:42 BMI result Body Mass Index 31.8 Tobacco/Smoking Status: Tobacco use Status Tobacco use date assessed 08/20/23 08/20/23 15:44 Patient Tobacco Use Status Never used Tobacco 08/20/23 15:44 e-Cigarette/Vaping Use Never Used 08/20/23 15:44 PHQ-9: PHQ-9 Score PHQ-9: Total score 1 08/20/23 16:00 Depression Screening Interpretation: Negative Thrive Assessment: Date of Thrive Assessment Date Thrive assessed 08/20/23 08/20/23 16:00 Currently or been in a relationship where the following occur: no concerns reported Const General: cooperative, comfortable and no acute distress Orientation/consciousness: patient oriented x3 HENMT Head: Yes normocephalic and Yes atraumatic Eyes General: appearance normal, both eyes and all related structures Pupils: Equal, round and reactive pupils present EOM: EOMs intact bilaterally Neck Neck: Yes supple and No lymphadenopathy Thyroid: Thyroid normal Lymphatic: no lymphadenopathy noted Resp Effort & Inspection: normal respiratory effort and able to speak in complete sentences Auscultation: clear to auscultation bilaterally Cardio Heart sounds: S1 normal heart sound present and S2 normal heart sound present GI Palpation (GI): Soft to palpation and nontender Auscultation: normal bowel sounds General: Yes no CVA tenderness Back/Spine/Pelvis Back: no CVA tenderness Skin General skin exam: elasticity normal and turgor normal Neuro General: patient oriented x3 and gait normal Cranial nerves: Yes Equal, round and reactive pupils present Speech: No Abnormal speech present Sensory Exam: No Sensory deficit (Neuro) Coordination: tandem gait normal and Romberg test negative Extrem General: Yes normal exam except as noted and No edema Assessment and Plan Assessment & Plan (1) Encounter for general adult medical examination with abnormal findings: Code(s): Z00.01 - Encounter for general adult medical examination with abnormal findings (2) Palpitations: Code(s): R00.2 - Palpitations (3) Hypothyroidism: Code(s): E03.9 - Hypothyroidism, unspecified Qualifiers: Hypothyroidism type: unspecified Qualified Code(s): E03.9 - Hypothyroidism, unspecified (4) Anxiety, generalized: Code(s): F41.1 - Generalized anxiety disorder Plan Patient is a 38-year-old female who continued to have palpitations Patient also have anxiety disorder and is doing better with Lexapro 5 mg I am ordering Holter monitor for the patient and referral placed for her to see a web applications administrator Patient sees [facility] breast exam is through them She is due for labs patient is currently on 88 mcg of levothyroxine for hypothyroidism Follow-up 6 months physical exam 1 year Orders: Orders TSH reflex Free T4 Today E03.9 - Hypothyroidism, unspecified, F41.1 - Generalized anxiety disorder, R00.2 - Palpitations, Z00.01 - Encounter for general adult medical examination with abnormal findings Complete Blood Count Auto Diff Today E03.9 - Hypothyroidism, unspecified, F41.1 - Generalized anxiety disorder, R00.2 - Palpitations, Z00.01 - Encounter for general adult medical examination with abnormal findings Comprehensive [place]. Panel Fast Today E03.9 - Hypothyroidism, unspecified, F41.1 - Generalized anxiety disorder, R00.2 - Palpitations, Z00.01 - Encounter for general adult medical examination with abnormal findings Lipid Panel Today E03.9 - Hypothyroidism, unspecified, F41.1 - Generalized anxiety disorder, R00.2 - Palpitations, Z00.01 - Encounter for general adult medical examination with abnormal findings ECG 3 day holter monitor Today R00.2 - Palpitations Referrals Cardiology Referral R00.2 - Palpitations Medications: Refilled escitalopram oxalate (Lexapro) 5 mg PO DAILY 90 tabs 1RF levothyroxine 100 mcg PO DAILY 90 tabs 1RF 90 days E55.9 - Vitamin D deficiency, unspecified Coding Level of Care Code Est Pt Prev Care 18-39y(86173) Diagnoses Encounter for general adult medical examination with abnormal findings Z00.01 Palpitations R00.2 Hypothyroidism, unspecified type E03.9 Hypothyroidism type: unspecified Anxiety, generalized F41.1 Additional Codes SHAHEED-7 Assessment Billing - SHAHEED-7 Assessment Tool: SHAHEED-7 Assessment 50393 ([id number])
[2023-08-20 15:42] VITALS: BP 126/84; PULSE 82; O2SAT 99; BMI 31.8
== END 2023-08-20 15:55 | disposition home or self-care (01) ==
PROVIDERS: Visit Provider Internal Medicine
DX: Z00.00 Encounter for general adult medical examination without abnormal findings (principal); R00.2 Palpitations; E03.9 Hypothyroidism, unspecified; F41.1 Generalized anxiety disorder
CPT/HCPCS: 99395

== ENCOUNTER 2023-08-21 10:01 | Outpatient (REF) | payer OTHER, SELFPAY ==
[2023-08-21 12:05] LABS: Alanine Aminotransferase 13 U/L (0-31); Alkaline Phosphatase 58 U/L (39-117); Anion Gap 13 (12-20); Aspartate Amino Transferase 22 U/L (5-31); Bilirubin Total 0.8 mg/dL (0.0-1.0); Blood Urea Nitrogen 10 mg/dL (9-16); Calcium 9.1 mg/dL (8.4-10.2); Carbon Dioxide 29 mmol/L (22-29); Chloride 102 mmol/L (96-108); Cholesterol 215 mg/dL (<200); Estimated Glomerular Filt Rate > 60; Glucose Fasting 86 mg/dL (60-99); HDL Cholesterol 76 mg/dL (>40); LDL Cholesterol Calculated 127 mg/dL (<100); Potassium 4.1 mmol/L (3.3-5.1); Sodium 140 mmol/L (135-145); TSH reflex Free T4 1.63 uIU/mL (0.32-4.0); Total Protein 7.2 g/dL (6.5-8.0); Triglycerides 62 mg/dL (<150)
== END 2023-08-21 10:02 | disposition home or self-care (01) ==
LOC: HO.HMGCLDS 10:01
PROVIDERS: PCP Internal Medicine; Visit Provider Internal Medicine
DX: Z00.01 Encounter for general adult medical examination with abnormal findings (principal); E03.9 Hypothyroidism, unspecified; R00.2 Palpitations; F41.1 Generalized anxiety disorder
CPT/HCPCS: 36415; 80053; 80061; 84443; 85025

== ENCOUNTER → 2023-09-01 13:35 | Outpatient (REF) | payer OTHER, SELFPAY ==
--- NOTE | 2023-09-01 13:37 | HM_ITS ---
* Total monitoring time about 3 days. * Underlying rhythm is sinus with an average rate of 81/Min. Range 62 to 150/Min. * Rare ventricular ectopy with a very low burden. Few couplets and triplets. * Rare supraventricular ectopy. * No significant pauses or AV blocks. * No patient markers or diary events. MTDD
== END ==
LOC: HO.CARD 13:35
PROVIDERS: PCP Internal Medicine; Visit Provider Internal Medicine
DX: R00.2 Palpitations (principal)
CPT/HCPCS: 93242

== ENCOUNTER → 2023-09-01 13:37 | Outpatient (BNV) | payer OTHER, SELFPAY | PROVIDERS: PCP Internal Medicine; Visit Provider Internal Medicine | DX: I47.10 Supraventricular tachycardia, unspecified (principal) | CPT/HCPCS: 93244 ==

== ENCOUNTER 2023-12-07 15:02 | Outpatient (AMB) | payer OTHER, SELFPAY ==
[2023-12-07 15:06] VITALS: BP 108/80; PULSE 75
--- NOTE | 2023-12-07 15:06 | A.OFFVIS_ITS ---
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 Over the last few months, she has been noticing fluttering the chest. Somewhat random and nothing provoking it. No history of any cardiac issues at baseline. No other symptoms. No known obstructive sleep apnea. [facility] Medical History Bowel habit changes Vitamin D deficiency Hyperthyroidism Hypothyroidism Injury of finger of left hand Hypothyroid Surgical History History of endometrial biopsy History of section H/O LEEP Family History Father No problems noted. Mother HTN (hypertension) Maternal Grandfather No problems noted. Maternal Uncle No problems noted. Paternal Grandfather Diabetes mellitus CVD (cardiovascular disease) Paternal Grandmother No problems noted. Brother No problems noted. Sister Thyroid cancer Hypothyroidism Son No problems noted. Son No problems noted. Social History Household Members: Spouse and Children Housing: House Alcohol intake: never Patient Tobacco Use Status: Never used Tobacco e-Cigarette/Vaping Use: Never Used Current occupational status: employed Cognitive needs: No Hearing needs: No Vision needs: Yes (contacts) Review of Systems Const Denies chills, Denies fatigue, Denies fever(s), Denies frequent falls, Denies weakness, Denies weight gain and Denies weight loss ENT Denies dizziness Card Denies chest pain, Denies leg edema, Denies lightheadedness, Denies palpitations, Denies dyspnea, Denies dyspnea on exertion and Denies orthopnea Resp Denies cough, Denies dyspnea and Denies dyspnea on exertion GI Denies bloating and Denies change in bowel habits Musc Denies muscle weakness, Denies numbness and Denies tingling Neuro Denies dizziness, Denies frequent falls, Denies numbness, Denies tingling and Denies weakness Endo Denies fatigue and Denies palpitations Physical Exam Vital Signs: Last Vital Signs Pulse 75 12/07/23 15:06 BP 108/80 12/07/23 15:06 Const General: comfortable and no acute distress Orientation/consciousness: patient oriented x3 HEENT Other: Unremarkable Head: Yes normal to inspection Neck Neck: Yes normal visual inspection Chest Chest palpation & inspection: normal inspection of the chest Resp Auscultation: clear to auscultation bilaterally Cardio Palpation: normal PMI Heart sounds: S1 normal heart sound present, S2 normal heart sound present, no gallops, no murmurs and no rubs GI Palpation (GI): Soft to palpation Back/Spine/Pelvis Other: unremarkable Skin General skin exam: no rashes or lesions noted Neuro General: patient oriented x3 Extrem General: Yes normal to inspection Psych Mental Status: mental status grossly normal Office Procedures EKG Details: EKG with sinus rhythm at 75/Min; no significant ST-T changes and otherwise unremarkable. [place]. [id number], Complete Assessment & Plan Assessment & Plan (1) PVC (premature ventricular contraction): Code(s): I49.3 - Ventricular premature depolarization Category: Medical Plan In the recent Holter, underlying rhythm is sinus. Very rare ventricular ectopy with some couplets/triplets. Discussed with patient and also showed her the strips. We can start with an echocardiogram for cardiac function assessment and any structural findings. Otherwise, mainly reassurance. Possibly some weight loss may help. If it gets worse, advised to contact us. Follow-up in 6 months. Orders: Orders CA echo transthoracic complete Today I49.3 - Ventricular premature depolarization Coding Level of Care Code New Pt Level 3 (11193) Diagnoses PVC (premature ventricular contraction) I49.3 CPT Codes EKG - CPT: 55686-[id number], Complete ([id number])
== END 2023-12-07 15:27 | disposition home or self-care (01) ==
PROVIDERS: PCP Internal Medicine; Visit Provider Internal Medicine
DX: I49.3 Ventricular premature depolarization (principal)
CPT/HCPCS: 93010; 99213

== ENCOUNTER → 2023-12-07 15:02 | Outpatient (BNVA) | payer OTHER, SELFPAY | PROVIDERS: PCP Internal Medicine; Visit Provider Internal Medicine | DX: I49.3 Ventricular premature depolarization (principal); R00.2 Palpitations | CPT/HCPCS: 93005; 99212 ==

== ENCOUNTER → 2024-01-04 14:59 | Outpatient (REF) | payer OTHER, SELFPAY ==
--- NOTE | 2024-01-04 15:02 | CA_ITS ---
Transthoracic Echocardiogram Patient (Last, First, Middle): Anaid Self E Gender: Female Date of : 1985 Age: 38 Procedure Date: 01/04/2024 Procedure Type: Transthoracic Echocardiogram Location: OP Height: 160.02 cm Weight: 77.11 kg BSA: 1.80 m2 Heart Rate: bpm BP: 126 / 72 mmHg Professor Of Genetics: TO Referring MD: Stephen Thurman MD Symptoms: I49.3 - Ventricular premature depolarization Study Quality: Adequate with contrast ECG Rhythm: Sinus Conclusions: - The left ventricular systolic function is normal. The calculated ejection fraction is 59% by biplane method. - No obvious valvular pathology seen on this study. Findings Procedure Information Contrast agent, definity, is being given per protocol without apparent complications. Left Ventricle Normal left ventricular cavity size. There is normal left ventricular wall thickness. The left ventricular systolic function is normal. The calculated ejection fraction is 59% by biplane method. There is no evidence of regional wall motion abnormalities. Diastolic function is normal for age. Right Ventricle Normal right ventricular cavity size and systolic function. Atria Both atria are normal in size. Aortic Valve There is a normal trileaflet aortic valve. There is no aortic valve stenosis. There is no aortic valve regurgitation. Mitral Valve The mitral valve appears normal. There is trace mitral valve regurgitation. There is no mitral valve stenosis. Pulmonic Valve The pulmonic valve is likely normal. Tricuspid Valve Normal tricuspid valve structure. There is mild tricuspid valve regurgitation. There is no evidence of pulmonary hypertension. Great Vessels The asc aorta and aortic arch are normal in size. Venous The inferior vena cava is normal in size and collapses greater than 50% with inspiration. Pericardium/Pleural There is no evidence of pericardial effusion. Prior Study Comparison No prior study available for comparison. Recommendations, Care & Conclusions No obvious valvular pathology seen on this study. Measurements 2D Linear Measurements IVSd: 0.82 0.6-0.9/0.6-1.0 cm LVIDd: 4.95 3.9-5.3/4.2-5.9 cm LVIDd Index: 2.75 2.4-3.2/2.2-3.1 cm/m2 LVIDs: 3.45 2.0-3.6 cm LVPWd: 0.70 0.7-1.1 cm LA Diam: 3.70 2.7-3.8/3.0-4.0 cm LAIDs Index: 2.06 1.5-2.3 cm/m2 LV Mass: 154.88 67-162/88-224 g LV Mass Index: 86.05 43-95/49-115 g/m2 LVOT Diam: 2.00 3.0+(-)1.3 cm 2D Systolic Function EF 4C: 57.60 >55% EF 2C: 60.00 >55% EF BiP: 59.20 >55% Mitral Valve MV Pk E: 0.65 MV PK A: 0.48 MV Decel Time: 212.00 E/A: 1.30 E'Lateral: 12.20 E'Medial: 9.25 E/E' Med: 7.00 E/E' Lat: 5.30 PHT: 62.00 MVA PHT: 3.55 Decel [place]: 3.05 Aortic Valve AoV Pk Ross: 1.48 AoV Mn Ross: 1.11 AoV VTI: 0.31 AoV Pk Grad: 9.00 Aov Mn Grad: 5.00 ROSI Cont.VTI: 2.53 LVOT LVOT Pk Ross: 1.16 LVOT Mn Ross: 0.70 LVOT VTI: 0.25 LVOT Pk Grad: 5.00 LVOT Mn Grad: 2.00 LVOT Diam: 2.00 LVOT Area: 3.14 Diastolic Function MV Pk E: 0.65 MV Pk A: 0.48 E/A: 1.30 E'Medial: 9.25 E/E' Med: 7.00 E' Laterial: 12.20 E/E' Lat: 5.30 Right Ventricle TAPSE (mm): 25.60 TVS' Ross: 11.50 Tricuspid Valve TR Pk Ross: 2.18 TR Pk Grad: 19.00 RA Press: 3.00 RVSP: 22.00 Great Vessels Aorta Sinus of Valsalva: 3.15 2.0-3.5 cm Ao Asc: 3.20 2.1-3.4 cm Ao Arch: 2.80 Updated in Other Vendor System with Status of Final Stephen Thurman MD electronically signed on 01/05/2024 8:51:58 AM with status of Final
== END ==
LOC: HO.CARD 14:59
PROVIDERS: PCP Internal Medicine; Visit Provider Internal Medicine
DX: I49.3 Ventricular premature depolarization (principal)
CPT/HCPCS: 93306; Q9957

== ENCOUNTER → 2024-01-04 15:02 | Outpatient (BNV) | payer OTHER, SELFPAY | PROVIDERS: PCP Internal Medicine; Visit Provider Internal Medicine | DX: I36.1 Nonrheumatic tricuspid (valve) insufficiency (principal) | CPT/HCPCS: 93306 ==

== ENCOUNTER 2024-02-22 08:30 | Outpatient (AMB) | payer OTHER, SELFPAY ==
[2024-02-22 08:34] VITALS: BP 138/84; PULSE 86; O2SAT 98; BMI 33.1
--- NOTE | 2024-02-22 08:34 | A.OFFPC_ITS ---
Vital Signs 02/22/24 08:34 Height 5 ft 2.5 in Weight 184 lb BMI 33.1 BP 138/84 Blood Pressure Location Lt brachial Position Sitting Pulse 86 Pulse Source Pulse Oximeter Pulse Oximetry (%) 98 Oxygen Delivery Method Room Air Intake Visit Reasons: 6 month follow up Allergies No Known Allergies [No Known Allergies*] Allergy (Verified 02/22/24 08:35) Medication List - Last Reconciled 02/22/24 by Ana Stevens MD escitalopram oxalate (Lexapro) 5 mg PO DAILY levothyroxine 100 mcg PO DAILY 90 days valacyclovir 2,000 mg (2 x 1 gram) PO BID 1 day Tobacco use date assessed: 02/22/24 Dental Screening Dental Screen Date: 02/22/24 Did you have a dental visit in the last 12 months?: Yes Did you have a dental problem in the last 6 months where you did not have access to dental care?: No Was dental information given to patient?: Patient has dentist HPI 6 month follow up HPI Details Patient is a 38-year-old female came in today for her regular follow-up appointment Anxiety is stable with Lexapro 5 mg, since she has started the medication her palpitations are better as well Visit with Cardiology Dr. Thurman November of this year reviewed Patient was evaluated for palpitations Cardiology has recommended reassurance However echocardiogram was ordered to further evaluate cardiac structure Allergies stable with [id number] medication However right ear feels full On examination ear is within normal limit BMI is elevated, patient is aware and is trying to lose weight Continued to feel tired during the day, however sleeping well at night I did offer sleep study to the patient but she has declined it at that time if she changed her mind she will get back to me Lab order placed to be done before physical exam in July. [facility] Medical History Bowel habit changes Vitamin D deficiency Hyperthyroidism Hypothyroidism Injury of finger of left hand Hypothyroid Surgical History History of endometrial biopsy History of section H/O LEEP Family History Father No problems noted. Mother HTN (hypertension) Maternal Grandfather No problems noted. Maternal Uncle No problems noted. Paternal Grandfather Diabetes mellitus CVD (cardiovascular disease) Paternal Grandmother No problems noted. Brother No problems noted. Sister Thyroid cancer Hypothyroidism Son No problems noted. Son No problems noted. Social History Household Members: Spouse and Children Housing: House Alcohol intake: never Patient Tobacco Use Status: Never used Tobacco e-Cigarette/Vaping Use: Never Used Current occupational status: employed Cognitive needs: No Hearing needs: No Vision needs: Yes (contacts) Questionnaire Thrive Questionnaire Date Thrive assessed: 08/20/23 AUDIT C Alcohol Use Questionnaire (AUDIT-C) 1. How often do you have a drink containing alcohol?: 2-4 times a month 2. How many drinks containing alcohol do you have on a typical day when you are drinking?: 1 or 2 3. How often do you have six or more drinks on one occasion?: Never Total Score: 2 Score Reviewed/Action Taken: Yes SHAHEED-7 AMB Questionnaire SHAHEED-7 Date SHAHEED - 7 assessed: 08/20/23 Source: Developed by Drs. Dc Keating, Kaelyn Tian, Juliano Sierra and colleagues, with an educational aba from [employer] (formerly [employer]). Review of Systems Const Denies chills and Denies fever(s) ENT Denies epistaxis and Denies nasal discharge Card Denies chest pain Resp Denies chest congestion, Denies cough and Denies hemoptysis GI Denies diarrhea and Denies nausea Skin/Breast Denies rash Neuro Reports no additional complaints Psych Reports no additional complaints Endo Reports no additional complaints Physical exam (Primary Care) Vital Signs: Last Vital Signs Pulse 86 02/22/24 08:34 BP 138/84 02/22/24 08:34 Pulse Ox 98 02/22/24 08:34 Oxygen Delivery Method Room Air 02/22/24 08:34 BMI result Body Mass Index 33.1 Tobacco/Smoking Status: Tobacco use Status Tobacco use date assessed 02/22/24 02/22/24 08:36 Patient Tobacco Use Status Never used Tobacco 02/22/24 08:36 e-Cigarette/Vaping Use Never Used 02/22/24 08:36 Thrive Assessment: Date of Thrive Assessment Date Thrive assessed 08/20/23 02/22/24 08:36 Const General: cooperative, comfortable and no acute distress Orientation/consciousness: patient oriented x3 HENAL Head: Yes normocephalic Eyes General: appearance normal, both eyes and all related structures Neck Neck: Yes supple Resp Effort & Inspection: normal respiratory effort, no cough and no stridor Cardio Rhythm: regular rhythm Heart sounds: S1 normal heart sound present and S2 normal heart sound present Skin General skin exam: turgor normal Neuro General: patient oriented x3, tone normal and moves all extremities Extrem Right lower extremity: no edema Left lower extremity: no edema Assessment and Plan Assessment & Plan (1) Anxiety, generalized: Code(s): F41.1 - Generalized anxiety disorder (2) Hypothyroidism: Code(s): E03.9 - Hypothyroidism, unspecified Qualifiers: Hypothyroidism type: unspecified Qualified Code(s): E03.9 - Hypoth yroidism, unspecified (3) Vitamin D deficiency: Code(s): E55.9 - Vitamin D deficiency, unspecified (4) Obesity due to excess calories: Comment: If your BMI is between 25 and 29.9, you are overweight. If your BMI is 30 or greater, you are obese. ___ Being obese is a problem, because it increases the risks of many different health problems. It can also make it hard for you to move, breathe, and do other things that people who are at a healthy weight can do easily. Plus, being obese can be hard emotionally. ___ What are the health risks of being obese? Being obese increases a persons risk of developing many health problems. Here are just a few examples: __ Diabetes High blood pressure, High cholesterol, Heart disease (including heart attacks) Stroke, Sleep apnea (a disorder in which you stop breathing for short periods while asleep) Asthma, Cancer __ Does being obese shorten a persons life? Yes. Studies show that people who are obese younger than people who are a healthy weight. They also show that the risk of goes up the heavier a person is. The degree of increased risk depends on how long the person has been obese, and on what other medical problems he or she has. , Reduce your carbohydrate intake and choose carbs that are complex. Remember as a general rule of thumb, avoid highly processed foods. If it's white and soft, it's probably been stripped of its nutritional value. Change white bread to whole wheat bread, white rice to brown rice, white potatoes to sweet potatoes, white pasta to whole wheat pasta. Monitor portion sizes too: protein should be no bigger than your fist. Limit your red meat intake to only once or twice a wk. Eat more white meat but make sure to avoid creamy sauces etc. Broiling, baking or grilling is best. Increase dark, green leafy vegetables and fruits. Code(s): E66.09 - Other obesity due to excess calories Qualifiers: Body mass index: BMI 33.0-33.9 Obesity classification: adult class 1 (BMI 30 - 34.9) Serious obesity comorbidity presence: without serious comorbidity Qualified Code(s): E66.09 - Other obesity due to excess calories; Z68.33 - Body mass index [BMI] 33.0-33.9, adult (5) Palpitations: Code(s): R00.2 - Palpitations (6) Tiredness: Code(s): R53.83 - Other fatigue (7) Environmental allergies: Code(s): Z91.09 - Other allergy status, other than to drugs and biological substances Plan Patient is a 38-year-old female came in today for her regular follow-up appointment Anxiety is stable with Lexapro 5 mg, since she has started the medication her palpitations are better as well Visit with Cardiology Dr. Thurman November of this year reviewed Patient was evaluated for palpitations Cardiology has recommended reassurance However echocardiogram was ordered to further evaluate cardiac structure Allergies stable with bdae-sjr-spqqwhd medication However right ear feels full On examination ear is within normal limit BMI is elevated, patient is aware and is trying to lose weight Continued to feel tired during the day, however sleeping well at night I did offer sleep study to the patient but she has declined it at that time if she changed her mind she will get back to me Lab order placed to be done before physical exam in July. Orders: Orders Complete Blood Count Auto Diff 4 Months E03.9 - Hypothyroidism, unspecified, E55.9 - Vitamin D deficiency, unspecified, E66.09 - Other obesity due to excess calories, F41.1 - Generalized anxiety disorder, R00.2 - Palpitations Comprehensive [place]. Panel Fast 4 Months E03.9 - Hypothyroidism, unspecified, E55.9 - Vitamin D deficiency, unspecified, E66.09 - Other obesity due to excess calories, F41.1 - Generalized anxiety disorder, R00.2 - Palpitations Lipid Panel 4 Months E03.9 - Hypothyroidism, unspecified, E55.9 - Vitamin D deficiency, unspecified, E66.09 - Other obesity due to excess calories, F41.1 - Generalized anxiety disorder, R00.2 - Palpitations TSH reflex Free T4 4 Months E03.9 - Hypothyroidism, unspecified, E55.9 - Vitamin D deficiency, unspecified, E66.09 - Other obesity due to excess calories, F41.1 - Generalized anxiety disorder, R00.2 - Palpitations Coding Level of Care Code Est Pt Level 4 (04631) Diagnoses Anxiety, generalized F41.1 Hypothyroidism, unspecified type E03.9 Hypothyroidism type: unspecified Vitamin D deficiency E55.9 Class 1 obesity due to excess calories without serious comorbidity with body mass index (BMI) of 33.0 to 33.9 in adult E66.09; Z68.33 Body mass index: BMI 33.0-33.9 Obesity classification: adult class 1 (BMI 30 - 34.9) Serious obesity comorbidity presence: without serious comorbidity Palpitations R00.2 Tiredness R53.83 Environmental allergies Z91.09
== END 2024-02-22 08:48 | disposition home or self-care (01) ==
PROVIDERS: PCP Internal Medicine; Visit Provider Internal Medicine
DX: F41.1 Generalized anxiety disorder (principal); E03.9 Hypothyroidism, unspecified; E55.9 Vitamin D deficiency, unspecified; E66.09 Other obesity due to excess calories; Z68.33 Body mass index [BMI] 33.0-33.9, adult; R00.2 Palpitations; R53.83 Other fatigue; Z91.09 Other allergy status, other than to drugs and biological substances
CPT/HCPCS: 99214

== ENCOUNTER 2024-03-01 15:25 | Outpatient (AMB) | payer OTHER, SELFPAY ==
[2024-03-01 15:31] VITALS: BP 130/80; PULSE 74; TEMP 36.7; O2SAT 98; BMI 33.1
--- NOTE | 2024-03-01 15:31 | MHC.OFFWIV ---
Intake Vital Signs 03/01/24 15:31 Height 5 ft 2.5 in Weight 184 lb BMI 33.1 BP 130/80 Blood Pressure Location Rt brachial Position Sitting Pulse 74 Pulse Source Pulse Oximeter Temp 98.0 F Temp Source Temporal Artery Scan Pulse Oximetry (%) 98 Intake Visit Reasons: EP LT side congestion/mucus Patient Tobacco Use Status: Never used Tobacco Allergies No Known Allergies [No Known Allergies*] Allergy (Verified 03/01/24 15:33) Do you need a note to return to daycare/school/sports/work: No HPI HPI Comments History of Present Illness Details Patient is a 38-year-old female complaining of 4 days of a cough, shortness of breath a fever of 101 and 3 days of diarrhea as well as some chest congestion. She denies any sinus pain ear pain or head congestion. She states her son was diagnosed with walking pneumonia almost 2 weeks ago was treated with Z-Sherif and feels better now. She did test for COVID 2 days ago and the test came back negative. [facility] Medical History Bowel habit changes Vitamin D deficiency Hyperthyroidism Hypothyroidism Injury of finger of left hand Hypothyroid Surgical History History of endometrial biopsy History of section H/O LEEP Family History Father No problems noted. Mother HTN (hypertension) Maternal Grandfather No problems noted. Maternal Uncle No problems noted. Paternal Grandfather Diabetes mellitus CVD (cardiovascular disease) Paternal Grandmother No problems noted. Brother No problems noted. Sister Thyroid cancer Hypothyroidism Son No problems noted. Son No problems noted. Social History Household Members: Spouse and Children Housing: House Alcohol intake: never Patient Tobacco Use Status: Never used Tobacco e-Cigarette/Vaping Use: Never Used Current occupational status: employed Cognitive needs: No Hearing needs: No Vision needs: Yes (contacts) Review of Systems Const All systems reviewed & are unremarkable except as noted in HPI and below Physical Exam Vital Signs: Last Vital Signs Temp 98.0 F 03/01/24 15:31 Pulse 74 03/01/24 15:31 BP 130/80 07/17/24 15:31 Pulse Ox 98 03/01/24 15:31 BMI result Body Mass Index 33.1 Const General: cooperative, healthy appearing, comfortable and no acute distress Orientation/consciousness: patient oriented x3 Limitations: no limitations HEENT Head: Yes normal to inspection Ears: hearing grossly normal bilaterally, external ears normal and TM's normal bilaterally General nose exam: Normal external nose present, Normal nares present and No nasal discharge present Face and sinus: Yes normal facial exam Mouth: Normal oral and palatal mucosa present and moist mucous membranes Throat: Yes tonsils normal, Yes uvula midline and Yes posterior oropharynx abnormal (Erythema) Eyes General: appearance normal, both eyes and all related structures Neck Neck: Yes normal visual inspection Resp Effort & Inspection: normal respiratory effort, able to speak in complete sentences, no respiratory distress, not tachypneic, no tripod positioning and no use of accessory muscles Auscultation: bronchovesicular breath sounds on the left Cardio Rate: regular rate Rhythm: regular rhythm Heart sounds: normal S1 and S2 Skin General skin exam: no rashes or lesions noted Neuro General: patient oriented x3 Extrem General: Yes normal to inspection and Yes no clubbing, cyanosis or edema Assessment & Plan Assessment & Plan (1) Atypical pneumonia: Code(s): J18.9 - Pneumonia, unspecified organism Plan: sent zpak to pharmacy Plan see above Medications: New azithromycin For 250 mg dose pack: take 500 mg today (day 1), then 250 mg for 4 days (days 2-5) PO 6 tabs 0RF Coding Level of Care Code Est Pt Level 3 (57106) Diagnoses Atypical pneumonia J18.9
== END 2024-03-01 16:53 | disposition home or self-care (01) ==
PROVIDERS: PCP Internal Medicine; Visit Provider Physician Assistant
DX: J18.9 Pneumonia, unspecified organism (principal)
CPT/HCPCS: 99213

== ENCOUNTER 2024-06-15 14:36 | Outpatient (AMB) | payer OTHER, SELFPAY ==
--- NOTE | 2024-06-15 14:39 | A.OFFVIS_ITS ---
VS Expanded 06/15/24 14:40 06/15/24 14:54 Height 5 ft 2.5 in 5 ft 2.5 in Weight 186 lb 4.65 oz 186 lb BMI 33.5 33.5 Intake Visit Reasons: Obesity due to excess calories/LVM Allergies No Known Allergies [No Known Allergies*] Allergy (Verified 03/01/24 15:33) Nutrition Presentation Details: Pt presents for MNT for obesity . Pt was referred by PCP Food frequency fruit/day 1/day fish: not including milk/yogurt:not including vegetables: 3 x/wk starches > 25 /d beverages: tea/water BS Monitoring Most Recent Diabetes Results: Cholesterol 215 mg/dL (<200) H 08/21/23 HDL Cholesterol 76 mg/dL (>40) 08/21/23 Triglycerides 62 mg/dL (<150) 08/21/23 Creatinine 0.77 mg/dL (0.5-1.4) 08/21/23 Blood Urea Nitrogen 10 mg/dL (9-16) 08/21/23 Sodium 140 mmol/L (135-145) 08/21/23 Potassium 4.1 mmol/L (3.3-5.1) 08/21/23 Chloride 102 mmol/L (96-108) 08/21/23 Carbon Dioxide 29 mmol/L (22-29) 08/21/23 Calcium 9.1 mg/dL (8.4-10.2) 08/21/23 AST 22 U/L (5-31) 08/21/23 ALT 13 U/L (0-31) 08/21/23 Total Protein 7.2 g/dL (6.5-8.0) 08/21/23 Albumin 4.0 g/dL (3.5-5.0) 08/21/23 JFC-Ezggmfv-Rz.Jeor Equation Height: 5 ft 2.5 in Weight: 186 lb Resting Metabolic Rate: 1482.15 Calculated Activity Level: Sedentary Calories Needed to Maintain Weight: 1778.58 Diagnosis Nutrition problem #1: food nutri know defi As related to (etiology) #1: diagnosis As evidenced by (sign/symptom) #1: knowledge deficit of diet [facility] Medical History Bowel habit changes Vitamin D deficiency Hyperthyroidism Hypothyroidism Injury of finger of left hand Hypothyroid Surgical History History of endometrial biopsy History of section H/O LEEP Family History Father No problems noted. Mother HTN (hypertension) Maternal Grandfather No problems noted. Maternal Uncle No problems noted. Paternal Grandfather Diabetes mellitus CVD (cardiovascular disease) Paternal Grandmother No problems noted. Brother No problems noted. Sister Thyroid cancer Hypothyroidism Son No problems noted. Son No problems noted. Social History Household Members: Spouse and Children Housing: House Alcohol intake: never Patient Tobacco Use Status: Never used Tobacco e-Cigarette/Vaping Use: Never Used Current occupational status: employed Cognitive needs: No Hearing needs: No Vision needs: Yes (contacts) Assessment & Plan Assessment & Plan (1) Obesity due to excess calories: Code(s): E66.09 - Other obesity due to excess calories Category: Medical Qualifiers: Obesity classification: adult class 1 (BMI 30 - 34.9) Serious obesity comorbidity presence: without serious comorbidity Body mass index: BMI 33.0- 33.9 Qualified Code(s): E66.09 - Other obesity due to excess calories; Z68.33 - Body mass index [BMI] 33.0-33.9, adult Plan: Wt: 85 Kg (06/2024) Est kcal needs as per MSJ: 1800 (40% carb, 30% protein/fat) Est fluid needs as per 25-30 ml/d: 2600 Est prot per day as per 1 g/kg bw: 85 Recommend fiber intake : 8-10 g per day and gradually increase to 25-28 g per day for women and 35-38 g for men or as tolerated Recommend sodium intake per day : less than 2300 mg Educated patient on: ( R = reviewed V = verbalizes understanding N/R = needs review N/A = not applicable * Food sources of carbohydrate, adequate serving sizes and its role in various health conditions: R * Differences between complex carbohydrates a simple carbohydrates, role of fiber in diet: R * Lean protein sources of foods: R * Differences between types of fats and role in diet (mono on saturated fat fatt y acids, saturated fatty acids, trans fats): R V N/R * Food sources of sodium in salt and healthy modifications for heart health in kidney health: R V R/V * Vitamins and minerals: R V N/R * Healthy plate method concept: R * Physical activity: Benefits a precaution: R V N/R * Plan 180 Patient Instructions: Work on following healthy plate method reducing total carb per meal to 60 g or less Work on having 3 meal/day and 1-2 snacks consisting of 0-20 g carb) see meal ideas a reference Coding Level of Care Code Nutr Indiv Intake (95690) Diagnoses Class 1 obesity due to excess calories without serious comorbidity with body mass index (BMI) of 33.0 to 33.9 in adult E66.09; Z68.33 Obesity classification: adult class 1 (BMI 30 - 34.9) Serious obesity comorbidity presence: without serious comorbidity Body mass index: BMI 33.0-33.9 Time Spent (min) 30
[2024-06-15 14:40] VITALS: BMI 33.5
[2024-06-21 09:28] VITALS: BMI 33.5
== END 2024-06-15 15:07 | disposition home or self-care (01) ==
LOC: HO.ENCR 14:37
PROVIDERS: PCP Internal Medicine; Visit Provider Dietitian, Registered
DX: E66.09 Other obesity due to excess calories (principal); Z68.33 Body mass index [BMI] 33.0-33.9, adult

== ENCOUNTER → 2024-06-15 14:36 | Outpatient (BNVA) | payer OTHER, SELFPAY | PROVIDERS: PCP Internal Medicine; Visit Provider Dietitian, Registered | DX: E66.09 Other obesity due to excess calories (principal); Z68.33 Body mass index [BMI] 33.0-33.9, adult | CPT/HCPCS: 97802 ==

== ENCOUNTER 2024-07-18 14:13 | Outpatient (AMB) | payer OTHER, SELFPAY ==
[2024-07-18 14:15] VITALS: BP 110/72; PULSE 73
--- NOTE | 2024-07-18 14:15 | A.OFFVIS_ITS ---
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 In the past, she was having palpitations suspected to be from PVCs. Overall, she states she is generally doing good. Only at nighttime, when it is very quiet she may feel some palpitations but during the daytime she feels completely normal. No other concerns like dizziness, presyncope or syncope. No chest pain or shortness of breath. 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 [facility] Medical History Bowel habit changes Vitamin D deficiency Hyperthyroidism Hypothyroidism Injury of finger of left hand Hypothyroid Surgical History History of endometrial biopsy History of section H/O LEEP Family History Father No problems noted. Mother HTN (hypertension) Maternal Grandfather No problems noted. Maternal Uncle No problems noted. Paternal Grandfather Diabetes mellitus CVD (cardiovascular disease) Paternal Grandmother No problems noted. Brother No problems noted. Sister Thyroid cancer Hypothyroidism Son No problems noted. Son No problems noted. Social History Household Members: Spouse and Children Housing: House Alcohol intake: never Patient Tobacco Use Status: Never used Tobacco e-Cigarette/Vaping Use: Never Used Current occupational status: employed Cognitive needs: No Hearing needs: No Vision needs: Yes (contacts) Review of Systems Const Denies chills, Denies fatigue, Denies fever(s), Denies frequent falls, Denies weakness, Denies weight gain and Denies weight loss ENT Denies dizziness Card Denies chest pain, Denies leg edema, Denies lightheadedness, Denies palpitations, Denies dyspnea and Denies dyspnea on exertion Resp Denies cough, Denies dyspnea and Denies dyspnea on exertion GI Denies hematochezia Musc Denies abnormal gait, Denies muscle weakness, Denies numbness, Denies radiating pain into limb and Denies tingling Neuro Denies abnormal gait, Denies dizziness, Denies frequent falls, Denies numbness, Denies tingling and Denies weakness Endo Denies fatigue and Denies palpitations Physical Exam Vital Signs: Last Vital Signs Pulse 73 07/18/24 14:15 BP 110/72 07/18/24 14:15 Const General: comfortable and no acute distress Orientation/consciousness: patient oriented x3 HEENT Other: Unremarkable Head: Yes normal to inspection Neck Neck: Yes normal visual inspection Chest Chest palpation & inspection: normal inspection of the chest Resp Auscultation: clear to auscultation bilaterally Cardio Palpation: normal PMI Heart sounds: S1 normal heart sound present, S2 normal heart sound present, no gallops, no murmurs and no rubs GI Palpation (GI): Soft to palpation Back/Spine/Pelvis Other: unremarkable Skin General skin exam: no rashes or lesions noted Neuro General: patient oriented x3 Extrem General: Yes normal to inspection Psych Mental Status: mental status grossly normal Assessment & Plan Assessment & Plan (1) PVC (premature ventricular contraction): Code(s): I49.3 - Ventricular premature depolarization Category: Medical Plan Cardiac studies reviewed. In the echocardiogram, LVEF 59%. No significant valvular findings and otherwise unremarkable. In the Holter monitor, underlying sinus rhythm with rare ventricular ectopy, few couplets/triplets. Findings discussed with patient. Also reviewed the strips with her. She does not have any worrisome findings and the palpitations are also infrequent and not bothersome. Overall burden is quite low. In this context, no specific medications. Mainly conservative care. If any alarming symptoms like presyncope, advised her to contact us immediately. Weight loss may be of some help as well. Otherwise, we can check another Holter monitoring about a year or so. If any interim concerns, she can contact us. Orders: Orders ECG 3 day holter monitor 1 Year I49.3 - Ventricular premature depolarization Coding Level of Care Code Est Pt Level 3 (88652) Diagnoses PVC (premature ventricular contraction) I49.3
== END 2024-07-18 14:30 | disposition home or self-care (01) ==
PROVIDERS: PCP Internal Medicine; Visit Provider Internal Medicine
DX: I49.3 Ventricular premature depolarization (principal)
CPT/HCPCS: 99213

== ENCOUNTER → 2024-07-18 14:13 | Outpatient (BNVA) | payer OTHER, SELFPAY | PROVIDERS: PCP Internal Medicine; Visit Provider Internal Medicine | DX: I49.3 Ventricular premature depolarization (principal) | CPT/HCPCS: 99212 ==

== ENCOUNTER 2024-08-25 14:28 | Outpatient (AMB) | payer OTHER, SELFPAY ==
--- NOTE | 2024-08-25 14:35 | MHC.OFFWIV ---
Intake Intake Visit Reasons: Annual PE Patient Tobacco Use Status: Never used Tobacco Allergies No Known Allergies [No Known Allergies*] Allergy (Verified 03/01/24 15:33) PFSH Medical History Bowel habit changes Vitamin D deficiency Hyperthyroidism Hypothyroidism Injury of finger of left hand Hypothyroid Surgical History History of endometrial biopsy History of section H/O LEEP Family History Father No problems noted. Mother HTN (hypertension) Maternal Grandfather No problems noted. Maternal Uncle No problems noted. Paternal Grandfather Diabetes mellitus CVD (cardiovascular disease) Paternal Grandmother No problems noted. Brother No problems noted. Sister Thyroid cancer Hypothyroidism Son No problems noted. Son No problems noted. Social History Household Members: Spouse and Children Housing: House Alcohol intake: never Patient Tobacco Use Status: Never used Tobacco e-Cigarette/Vaping Use: Never Used Current occupational status: employed Cognitive needs: No Hearing needs: No Vision needs: Yes (contacts) Coding
[2024-08-25 14:39] VITALS: BP 130/88; PULSE 76; O2SAT 98; BMI 33.5
--- NOTE | 2024-08-25 14:40 | A.OFFPC_ITS ---
Vital Signs 08/25/24 14:39 Height 5 ft 3 in Weight 189 lb BMI 33.5 BP 130/88 Blood Pressure Location Rt brachial Position Sitting Pulse 76 Pulse Source Pulse Oximeter Pulse Oximetry (%) 98 Oxygen Delivery Method Room Air Intake Visit Reasons: Annual PE Allergies No Known Allergies [No Known Allergies*] Allergy (Verified 08/25/24 14:39) Medication List - Last Reconciled 08/25/24 by Ana Stevens MD escitalopram oxalate (Lexapro) 5 mg PO DAILY levothyroxine 100 mcg PO DAILY 90 days valacyclovir 2,000 mg (2 x 1 gram) PO BID 1 day Tobacco use date assessed: 02/22/24 Dental Screening Dental Screen Date: 02/22/24 HPI Annual PE HPI Details Physical exam appointment The patient is a 39-year-old female presenting with weight-related concerns: - The patient is concerned with her BMI of 33.5 despite dietary measures and regular physical activity. - Engages in regular exercise (five days a week) and maintains a daily caloric intake between 2612-1635 calories. - Past consultations with a balloon sander did not provide new insights for weight management. 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 - One month ago, the patient fell and in jured her right knee, resulting in ongoing dull pain particularly when pressure is applied, suggesting possible knee contusion. - A persistent sensation of ear pressure has been noted but remains unchanged despite treatment for allergies. - anxiety stable -continued to take levothyroxine 100 mcg -due for labs Health Maintenance - Mammogram recommendation as patient is at an appropriate age to begin screenings. - Discussion of weight management and re commendation against daily weighing to avoid frequent fluctuations in perceived progress. Medications - Levothyroxine for thyroid management - Lexapro for depression, considering di scontinuation depending on Wellbutrin trial Diagnostic results - last set of lab work August of 2023 ( kidney function and liver enzymes) Patient Instructions - Consider initiating Wellbutrin (150 mg once daily) to aid weight loss and mood elevation. Script sent - Avoid daily weighing; weigh once every two weeks to observe trends. - Complete fasting labs as previously or dered. - Monitor Wellbutrin effects and potenti al side effects. - If discomfort or complications arise, contact the clinic. Stop medication - Attend scheduled OBGYN visit and obtai n a mammogram as recommended. Follow-up appointment three-week telemedicine 1 year physical exam Review of Systems - General: Reports fatigue - ENT: Denies ear pain, reports frequent awakenings during sleep - Musculoskeletal: Reports dull right kn ee pain, denies swelling - Respiratory: Denies breathing issues - General: No fever no chills - Neurological: No headaches no dizzin ess - Ear nose throat: No sore throat no hearing difficulty no ear pain - Cardiovascular: No syncope, no chest pain, no palpitations - Gastrointestinal: No nausea vomiting or diarrhea - Endocrine: No polyuria polydipsia no heat intolerance - Genitourinary: No dysuria - Skin: No new complaints Physical Exam General: Cooperative, healthy appearing, comfortable, no acute distress Orientation: Patient oriented x3 Limitations: None Head: Normal to inspection Ears: Within normal limit visually, patient reports feeling of pressure or fluid behind the ear, but no visible abnormalities Nose: Normal external nose present Face and sinus: Normal facial exam, no pain reported in sinus area Eyes: Appearance normal, extraocular movement intact pupils reactive Neck: Normal visual inspection and supple Respiratory: Normal respiratory effort and able to speak in complete sentences. Clear to auscultation, no stridor Breast exam through OBGYN Cardiovascular: S1 and S2 GI: Normal to inspection. Soft to palpation and nontender Skin: Turgor normal, no acute findings, a couple of benign moles noted Neuro: Patient oriented x3, motor sensory intact, balance intact, tandem pass Extremities: Normal to inspection, patient reports dull pain in knee after a fall, no swelling observed, full range of motion present, no pain when bending knee PFSH Medical History Bowel habit changes Vitamin D deficiency Hyperthyroidism Hypothyroidism Injury of finger of left hand Hypothyroid Surgical History History of endometrial biopsy History of section H/O LEEP Family History Father No problems noted. Mother HTN (hypertension) Maternal Grandfather No problems noted. Maternal Uncle No problems noted. Paternal Grandfather Diabetes mellitus CVD (cardiovascular disease) Paternal Grandmother No problems noted. Brother No problems noted. Sister Thyroid cancer Hypothyroidism Son No problems noted. Son No problems noted. Social History Household Members: Spouse and Children Housing: House Alcohol intake: never Patient Tobacco Use Status: Never used Tobacco e-Cigarette/Vaping Use: Never Used Current occupational status: employed Cognitive needs: No Hearing needs: No Vision needs: Yes (contacts) Questionnaire PHQ-9 Over the last 2 weeks, how often have you been bothered by any of the following problems? 1. Little interest or pleasure in doing things: not at all 2. Feeling down, depressed, or hopeless: not at all 3. Trouble falling or staying asleep, or sleeping too much: not at all 4. Feeling tired or having little energy: not at all 5. Poor appetite or overeating: not at all 6. Feeling bad about yourself - or that you are a failure or have let yourself or your family down: not at all 7. Trouble concentrating on things, such as reading the newspaper or watching television: not at all 8. Moving or speaking so slowly that other people could have noticed. Or the opposite - being so fidgety or restless that you have been moving around a lot more than usual: not at all 9. Thoughts that you would be better off or of hurting yourself in some way: not at all Total score: 0 Depression Screening Interpretation: Negative Depression Screening Done: Yes [id number] - PHQ-9 Billing: Yes Source: Developed by Drs. Dc Keating, Kaelyn Tian, Juliano Sierra and colleagues, with an educational aba from [employer]. Thrive Questionnaire Date Thrive assessed: 08/18/24 I am a: Patient What is your living situation today?: I have a steady place to live Within the past 12 months, did the food you bought not last and you didn't have the money to get more?: Never true Within the past 12 months, did you worry whether your food would run out before you got money to buy more?: Never true Do you have trouble paying for medicines?: No Do you have trouble getting transportation to medical appointments?: No Do you have trouble paying your heating and electricity bill?: No Do you have trouble taking care of your child, family member or friend?: No Do you have trouble with day-to-day activities such as bathing, preparing meals, shopping, managing finances, etc.?: No Are you currently unemployed and looking for a job?: No Are you interested in more education?: No Please select the resources that you would like help with: None Currently or been in a relationship where the following occur: No concerns reported THRIVE Score: 0 AUDIT C Alcohol Use Questionnaire (AUDIT-C) 1. How often do you have a drink containing alcohol?: 2-4 times a month 2. How many drinks containing alcohol do you have on a typical day when you are drinking?: 1 or 2 3. How often do you have six or more drinks on one occasion?: Never Total Score: 2 SHAHEED-7 AMB Questionnaire SHAHEED-7 Date SHAHEED - 7 assessed: 08/20/23 Feeling nervous, anxious, or on edge: 0 = Not at all Not being able to stop or control worryin = Not at all Worrying too much about different things: 0 = Not at all Trouble relaxin = Not at all Being so restless that it is hard to sit still: 0 = Not at all Becoming easily annoyed or irritable: 0 = Not at all Feeling afraid as if something awful might happen: 0 = Not at all Total SHAHEED-7 score (0-4 normal; 5-9 mild; 10-14 moderate; 15-21 severe): 0 Source: Developed by Drs. Dc Keating, Kaelyn Tian, Juliano Sierra and colleagues, with an educational aab from [employer]. Physical exam (Primary Care) Vital Signs: Last Vital Signs Pulse 76 08/25/24 14:39 BP 130/88 08/25/24 14:39 Pulse Ox 98 08/25/24 14:39 Oxygen Delivery Method Room Air 08/25/24 14:39 Tobacco/Smoking Status: Tobacco use Status Tobacco use date assessed 02/22/24 03/01/24 15:24 Patient Tobacco Use Status Never used Tobacco 03/01/24 15:34 e-Cigarette/Vaping Use Never Used 03/01/24 15:24 Depression Screening Interpretation: Negative Thrive Assessment: Date of Thrive Assessment Date Thrive assessed 08/18/24 08/18/24 16:30 Currently or been in a relationship where the following occur: No concerns reported Coding Level of Care Code Est Pt Level 3 (28034) Est Pt Prev Care 40-64y(43757) Diagnoses Encounter for general adult medical examination with abnormal findings Z00.01 Class 1 obesity due to excess calories without serious comorbidity with body mass index (BMI) of 33.0 to 33.9 in adult E66.09; Z68.33 Obesity classification: adult class 1 (BMI 30 - 34.9) Serious obesity comorbidity presence: without serious comorbidity Body mass index: BMI 33.0-33.9 Hypothyroidism, unspecified type E03.9 Hypothyroidism type: unspecified Anxiety, generalized F41.1 Environmental allergies Z91.09 Fullness in right ear H93.8X1 Additional Codes PHQ-9 - 76105 - PHQ-9 Billing: Yes ([id number]) Assessment & Plan Assessment & Plan (1) Encounter for general adult medical examination with abnormal findings: Code(s): Z00.01 - Encounter for general adult medical examination with abnormal findings Category: Medical (2) Obesity due to excess calories: Code(s): E66.09 - Other obesity due to excess calories Category: Medical Qualifiers: Obesity classification: adult class 1 (BMI 30 - 34.9) Serious obesity comorbidity presence: without serious comorbidity Body mass index: BMI 33.0- 33.9 Qualified Code(s): E66.09 - Other obesity due to excess calories; Z68.33 - Body mass index [BMI] 33.0-33.9, adult (3) Hypothyroidism: Code(s): E03.9 - Hypothyroidism, unspecified Category: Medical Qualifiers: Hypothyroidism type: unspecified Qualified Code(s): E03.9 - Hypothyroidism, unspecified (4) Anxiety, generalized: Code(s): F41.1 - Generalized anxiety disorder Category: Medical (5) Environmental allergies: Code(s): Z91.09 - Other allergy status, other than to drugs and biological substances Category: Medical (6) Fullness in right ear: Code(s): H93.8X1 - Other specified disorders of right ear Category: Medical Plan Physical exam appointment The patient is a 39-year-old female presenting with weight-related concerns: - The patient is concerned with her BMI of 33.5 despite dietary measures and regular physical activity. - Engages in regular exercise (five days a week) and maintains a daily caloric intake between 2912-5221 calories. - Past consultations with a balloon sander did not provide new insights for weight management. - Reports experiencing issues with insomnia, characterized by nocturnal awakenings without difficulty in sleep initiation. - One month ago, the patient fell and injured her right knee, resulting in ongoing dull pain particularly when pressure is applied, suggesting possible knee contusion. - A persistent sensation of ear pressure has been noted but remains unchanged despite treatment for allergies. - anxiety stable -continued to take levothyroxine 100 mcg -due for labs Health Maintenance - Mammogram recommendation as patient is at an appropriate age to begin screenings. - Discussion of weight management and recommendation against daily weighing to avoid frequent fluctuations in perceived progress. Medications - Levothyroxine for thyroid management - Lexapro for depression, considering discontinuation depending on Wellbutrin trial Diagnostic results - last set of lab work August of 2023 (kidney function and liver enzymes) Patient Instructions - Consider initiating Wellbutrin (150 mg once daily) to aid weight loss and mood elevation. Script sent - Avoid daily weighing; weigh once every two weeks to observe trends. - Complete fasting labs as previously ordered. - Monitor Wellbutrin effects and potential side effects. - If discomfort or complications arise, contact the clinic. Stop medication - Attend scheduled OBGYN visit and obtain a mammogram as recommended. Follow-up appointment three-week telemedicine 1 year physical exam Orders: Orders MM tomosynthesis screening BI Today Z12.31 - Encounter for screening mammogram for malignant neoplasm of breast Medications: New bupropion HCl SR (Wellbutrin SR) 150 mg PO QAM 30 tabs 0RF
== END 2024-08-25 15:12 | disposition home or self-care (01) ==
PROVIDERS: PCP Internal Medicine; Visit Provider Internal Medicine
DX: Z00.00 Encounter for general adult medical examination without abnormal findings (principal); E03.9 Hypothyroidism, unspecified; E66.09 Other obesity due to excess calories; Z68.33 Body mass index [BMI] 33.0-33.9, adult; F41.1 Generalized anxiety disorder; Z91.09 Other allergy status, other than to drugs and biological substances; H93.8X1 Other specified disorders of right ear

== ENCOUNTER → 2024-08-25 14:28 | Outpatient (BNVA) | payer OTHER, SELFPAY | PROVIDERS: PCP Internal Medicine; Visit Provider Internal Medicine | DX: Z00.01 Encounter for general adult medical examination with abnormal findings (principal); E66.09 Other obesity due to excess calories; Z68.33 Body mass index [BMI] 33.0-33.9, adult; E03.9 Hypothyroidism, unspecified; F41.1 Generalized anxiety disorder; H93.8X1 Other specified disorders of right ear; Z91.09 Other allergy status, other than to drugs and biological substances | CPT/HCPCS: 96127; 99212 ==

== ENCOUNTER 2024-08-28 06:35 | Outpatient (REF) | payer OTHER, SELFPAY ==
[2024-08-28 09:58] LABS: MANUAL DIFF FLAG NO
[2024-08-28 10:04] LABS: Basophils Absolute Auto 0.1 X10*3/uL (0.0-0.2); Basophils Percent Auto 0.7 % (0-2); Eosinophils Absolute Auto 0.2 X10*3/uL (0.0-0.4); Eosinophils Percent Auto 2.3 % (0-4); Hematocrit 40.3 % (37.0-47.0); Hemoglobin 13.2 g/dl (12.0-16.0); Imm Gran Abs Auto 0.03 X10*3/uL (0.00-0.03); Imm Gran Pct Auto 0.4 % (0.0-0.4); Lymphocytes Absolute Auto 1.6 X10*3/uL (1.2-4.9); Lymphocytes Percent Auto 21.7 % (20-40); Mean Corpuscular HGB Conc 32.8 g/dl (31.0-35.0); Mean Corpuscular Hemoglobin 30.5 pg (27.0-33.0); Mean Corpuscular Volume 93.1 fL (80.0-98.0); Monocytes Absolute Auto 0.7 X10*3/uL (0.1-1.2); Monocytes Percent Auto 8.9 % (2-11); Neutrophils Absolute Auto 4.8 x10*3/uL (2.0-8.3); Platelet Count 378 X10*3/uL (160-400); Red Blood Count 4.33 X10*6/uL (4.20-5.50); Red Cell Distribution Width 12.2 % (11.0-16.0); White Blood Count 7.3 X10*3/uL (4.8-10.8)
[2024-08-28 10:40] LABS: Alanine Aminotransferase 14 U/L (0-31); Albumin Level 3.9 g/dL (3.5-5.0); Alkaline Phosphatase 61 U/L (39-117); Anion Gap 9 (12-20); Aspartate Amino Transferase 28 U/L (5-31); Bilirubin Total 0.6 mg/dL (0.0-1.0); Blood Urea Nitrogen 9 mg/dL (9-16); Calcium 8.7 mg/dL (8.4-10.2); Carbon Dioxide 28 mmol/L (22-29); Chloride 106 mmol/L (96-108); Cholesterol 196 mg/dL (<200); Estimated Glomerular Filt Rate > 60; Glucose Fasting 83 mg/dL (60-99); HDL Cholesterol 60 mg/dL (>40); LDL Cholesterol Calculated 120 mg/dL (<100); Potassium 3.7 mmol/L (3.3-5.1); Sodium 139 mmol/L (135-145); TSH reflex Free T4 1.01 uIU/mL (0.32-4.0); Triglycerides 84 mg/dL (<150)
== END 2024-08-28 06:36 | disposition home or self-care (01) ==
LOC: HO.HMGCLDS 06:35
PROVIDERS: PCP Internal Medicine; Visit Provider Internal Medicine
DX: E03.9 Hypothyroidism, unspecified (principal); E55.9 Vitamin D deficiency, unspecified; E66.09 Other obesity due to excess calories; R00.2 Palpitations; F41.1 Generalized anxiety disorder
CPT/HCPCS: 36415; 80053; 80061; 84443; 85025

== ENCOUNTER 2024-09-14 10:32 | Outpatient (REF) | payer OTHER, SELFPAY | END 2024-09-14 10:33 | disposition home or self-care (01) | LOC: HO.MAMMO 10:32 | PROVIDERS: PCP Internal Medicine; Visit Provider Internal Medicine | DX: Z12.31 Encounter for screening mammogram for malignant neoplasm of breast (principal) | CPT/HCPCS: 77063; 77067 ==

== ENCOUNTER → 2024-09-14 10:45 | Outpatient (BNV) | payer OTHER, SELFPAY | PROVIDERS: PCP Internal Medicine; Visit Provider Internal Medicine | DX: Z12.31 Encounter for screening mammogram for malignant neoplasm of breast (principal) | CPT/HCPCS: 77063; 77067 ==

== ENCOUNTER 2024-11-23 08:38 | Outpatient (AMB) | payer OTHER, SELFPAY ==
--- NOTE | 2024-11-23 08:37 | MHC.PC.OV ---
Vital Signs 11/23/24 10:39 Height 5 ft 3 in Weight 184 lb BMI 32.6 Intake Visit Reasons: Discuss weight Allergies No Known Allergies [No Known Allergies*] Allergy (Verified 11/23/24 08:38) Medication List - Last Reconciled 11/23/24 by Ana Stevens MD buspirone 5 mg PO TID PRN 30 days levothyroxine 100 mcg PO DAILY 90 days valacyclovir 2,000 mg (2 x 1 gram) PO BID 1 day Tobacco use date assessed: 11/23/24 Dental Screening Dental Screen Date: 11/23/24 Did you have a dental visit in the last 12 months?: Yes Did you have a dental problem in the last 6 months where you did not have access to dental care?: No Was dental information given to patient?: Patient has dentist HPI Discuss weight HPI Details History - The patient is a 39-year-old female presenting with difficulty managing weight . - Initially experienced a five-pound weight loss after discontinuing escitalopram, but weight loss has plateaued. - Current weight is 184 pounds at a height of 5'2.5 . - Reports dietary intake of 8620-0979 calories daily and regular exercise five times per week for weight management. - Open to exploring medication options, specifically phentermine, for assistance in weight reduction. - No previous use of phentermine or similar medications. - No known drug allergies reported. Problem List - Weight management difficulty following cessation of escitalopram Patient Instructions - Start phentermine as prescribed, beginning with a 15 mg dose. side effects discussed with patient - Return to the office for a weigh-in and follow-up appointment in four weeks. - Continue tracking dietary intake and maintaining exercise regimen. - Do not share prescribed medication with anyone else. Review of Systems - General: No fever no chills - Neurological: No headaches no dizziness - Ear nose throat: No sore throat no hearing difficulty no ear pain - Cardiovascular: No syncope, no chest pain, no palpitations - Gastrointestinal: No nausea vomiting or diarrhea [facility] Medical History Bowel habit changes Vitamin D deficiency Hyperthyroidism Hypothyroidism Injury of finger of left hand Hypothyroid Surgical History History of endometrial biopsy History of section H/O LEEP Family History Father No problems noted. Mother HTN (hypertension) Maternal Grandfather No problems noted. Maternal Uncle No problems noted. Paternal Grandfather Diabetes mellitus CVD (cardiovascular disease) Paternal Grandmother No problems noted. Brother No problems noted. Sister Thyroid cancer Hypothyroidism Son No problems noted. Son No problems noted. Social History Household Members: Spouse and Children Housing: House Alcohol intake: never Patient Tobacco Use Status: Never used Tobacco e-Cigarette/Vaping Use: Never Used Current occupational status: employed Cognitive needs: No Hearing needs: No Vision needs: Yes (contacts) Questionnaire Thrive Questionnaire Date Thrive assessed: 08/18/24 AUDIT C Alcohol Use Questionnaire (AUDIT-C) 1. How often do you have a drink containing alcohol?: 2-4 times a month 2. How many drinks containing alcohol do you have on a typical day when you are drinking?: 1 or 2 3. How often do you have six or more drinks on one occasion?: Never Total Score: 2 Score Reviewed/Action Taken: Yes SHAHEED-7 AMB Questionnaire SHAHEED-7 Date SHAHEED - 7 assessed: 08/20/23 Source: Developed by Drs. Dc Keating, Kaelyn Tian, Juliano Sierra and colleagues, with an educational aba from [employer]. Physical exam (Primary Care) Tobacco/Smoking Status: Tobacco use Status Tobacco use date assessed 11/23/24 11/23/24 08:39 Patient Tobacco Use Status Never used Tobacco 11/23/24 08:37 e-Cigarette/Vaping Use Never Used 11/23/24 08:37 Thrive Assessment: Date of Thrive Assessment Date Thrive assessed 08/18/24 11/23/24 08:37 Telehealth Telehealth Telehealth Platform: [facility] Location of provider rendering services: practice address Location of patient: address on file Patient Identification confirmed using: Name, : Yes Telehealth method: video Patient verbally consented to treatment: Yes Patient verbally consented to billing insurance company: Yes Patient informed of any privacy concerns related to visit: Yes Minutes spent on Phone/Video with Pt.: 14 Coding Level of Care Code Tele Est Pt Level 3 (26149) Diagnoses Class 1 obesity due to excess calories without serious comorbidity with body mass index (BMI) of 33.0 to 33.9 in adult E66.09; Z68.33 Obesity classification: adult class 1 (BMI 30 - 34.9) Serious obesity comorbidity presence: without serious comorbidity Body mass index: BMI 33.0-33.9 Assessment & Plan Assessment & Plan (1) Obesity due to excess calories: Code(s): E66.09 - Other obesity due to excess calories Category: Medical Qualifiers: Obesity classification: adult class 1 (BMI 30 - 34.9) Serious obesity comorbidity presence: without serious comorbidity Body mass index: BMI 33.0-33.9 Qualified Code(s): E66.09 - Other obesity due to excess calories; Z68.33 - Body mass index [BMI] 33.0-33.9, adult Plan History - The patient is a 39-year-old female presenting with difficulty managing weight . - Initially experienced a five-pound weight loss after discontinuing escitalopram, but weight loss has plateaued. - Current weight is 184 pounds at a height of 5'2.5 . - Reports dietary intake of 5184-9513 calories daily and regular exercise five times per week for weight management. - Open to exploring medication options, specifically phentermine, for assistance in weight reduction. - No previous use of phentermine or similar medications. - No known drug allergies reported. Problem List - Weight management difficulty following cessation of escitalopram Patient Instructions - Start phentermine as prescribed, beginning with a 15 mg dose. side effects discussed with patient - Return to the office for a weigh-in and follow-up appointment in four weeks. - Continue tracking dietary intake and maintaining exercise regimen. - Do not share prescribed medication with anyone else. Medications: New phentermine must administer 2 hours after breakfast 15 mg PO DAILY 30 caps 0RF
[2024-11-23 10:39] VITALS: BMI 32.6
== END 2024-11-23 09:11 | disposition home or self-care (01) ==
LOC: HO.HMCC 08:38
PROVIDERS: PCP Internal Medicine; Visit Provider Internal Medicine
DX: E66.09 Other obesity due to excess calories (principal); Z68.33 Body mass index [BMI] 33.0-33.9, adult

== ENCOUNTER → 2024-11-23 08:38 | Outpatient (BNVA) | payer OTHER, SELFPAY | PROVIDERS: PCP Internal Medicine; Visit Provider Internal Medicine | DX: Z13.89 Encounter for screening for other disorder (principal) ==

== ENCOUNTER 2025-04-24 09:14 | Outpatient (AMB) | payer OTHER, SELFPAY ==
[2025-04-24 09:15] VITALS: BP 118/80; PULSE 78; TEMP 36.9; O2SAT 98
--- NOTE | 2025-04-24 09:15 | A.OFFPC_ITS ---
Vital Signs 04/24/25 09:15 Height 5 ft 3 in BMI Reason not done Patient refused/unable BP 118/80 Blood Pressure Location Lt brachial Position Sitting Pulse 78 Pulse Source Pulse Oximeter Temp 98.4 F Temp Source Oral Pulse Oximetry (%) 98 Oxygen Delivery Method Room Air Intake Visit Reasons: Sore Throat Residential Designer Required: No Allergies No Known Allergies (No Known Allergies*) Allergy (Verified 04/24/25 09:20) Medication List - Last Reconciled 04/24/25 by Ana Stevens MD buspirone 5 mg PO TID PRN 30 days levothyroxine 100 mcg PO DAILY 90 days valacyclovir 2,000 mg (2 x 1 gram) PO BID 1 day Tobacco use date assessed: 11/23/24 Dental Screening Dental Screen Date: 11/23/24 HPI Sore Throat HPI Details History of Present Illness The patient is a 39 year old female presenting with sore throat. Sore Throat: - Onset: Patient reports the sore throat began on Wednesday. - Duration: Symptoms have persisted sinc e onset, which is as of today several days. - Severity: Described as bad. - Associated symptoms: Patient experienc ed a low-grade fever, reporting a maximum temperature of approximately 100?F, which responded to ibuprofen taken at 5:30 AM on the day of the visit. No reported cough or congestion. - Aggravating factors: No specific aggra vating factors identified. - Alleviating factors: Use of ibuprofen noted some relief of fever. No prior use of Chloraseptic throat spray, which was discussed as a possible alleviating treatment. 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 - Family status: Has a son who experienc es seasonal allergies. Problem List - acute pharyngitis Patient Instructions - Take prescribed antibiotics (Amoxicill in 500 mg, three times a day) for 10 days; may discontinue after 5-7 days if symptom improvement is significant. - Use warm salt water gargles for sore t hroat relief. - Consider Chloraseptic throat spray for additional pain relief. 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 Mother HTN (hypertension) Maternal Grandfather No problems noted. Maternal Uncle No problems noted. Paternal Grandfather Diabetes mellitus CVD (cardiovascular disease) Paternal Grandmother No problems noted. Brother No problems noted. Sister Thyroid cancer Hypothyroidism Son No problems noted. Son No problems noted. Social History Household Members: Spouse and Children Housing: House Alcohol intake: never Patient Tobacco Use Status: Never used Tobacco e-Cigarette/Vaping Use: Never Used Current occupational status: employed Cognitive needs: No Hearing needs: No Vision needs: Yes (contacts) Questionnaire PHQ-9 Over the last 2 weeks, how often have you been bothered by any of the following problems? 1. Little interest or pleasure in doing things: not at all 2. Feeling down, depressed, or hopeless: not at all 3. Trouble falling or staying asleep, or sleeping too much: not at all 4. Feeling tired or having little energy: not at all 5. Poor appetite or overeating: not at all 6. Feeling bad about yourself - or that you are a failure or have let yourself or your family down: not at all 7. Trouble concentrating on things, such as reading the newspaper or watching television: not at all 8. Moving or speaking so slowly that other people could have noticed. Or the opposite - being so fidgety or restless that you have been moving around a lot more than usual: not at all 9. Thoughts that you would be better off or of hurting yourself in some way: not at all Total score: 0 Depression Screening Interpretation: Negative Depression Screening Done: Yes Source: Developed by Drs. Dc Keating, Kaelyn Tian, Juliano Sierra and colleagues, with an educational aba from [employer]. Thrive Questionnaire Date Thrive assessed: 08/18/24 I am a: Patient What is your living situation today?: I have a steady place to live Within the past 12 months, did the food you bought not last and you didn't have the money to get more?: Never true Within the past 12 months, did you worry whether your food would run out before you got money to buy more?: Never true Do you have trouble paying for medicines?: No Do you have trouble getting transportation to medical appointments?: No Do you have trouble paying your heating and electricity bill?: No Do you have trouble taking care of your child, family member or friend?: No Do you have trouble with day-to-day activities such as bathing, preparing meals, shopping, managing finances, etc.?: No Are you currently unemployed and looking for a job?: No Are you interested in more education?: No Please select the resources that you would like help with: None Currently or been in a relationship where the following occur: No concerns reported THRIVE Score: 0 AUDIT C Alcohol Use Questionnaire (AUDIT-C) 1. How often do you have a drink containing alcohol?: 2-4 times a month 2. How many drinks containing alcohol do you have on a typical day when you are drinking?: 1 or 2 3. How often do you have six or more drinks on one occasion?: Never Total Score: 2 SHAHEED-7 AMB Questionnaire SHAHEED-7 Date SHAHEED - 7 assessed: 04/24/25 Feeling nervous, anxious, or on edge: 1 = Several days Not being able to stop or control worryin = Not at all Worrying too much about different things: 0 = Not at all Trouble relaxin = Several days Being so restless that it is hard to sit still: 0 = Not at all Becoming easily annoyed or irritable: 0 = Not at all Feeling afraid as if something awful might happen: 0 = Not at all Total SHAHEED-7 score (0-4 normal; 5-9 mild; 10-14 moderate; 15-21 severe): 2 Source: Developed by Drs. Dc Keating, Kaelyn Tian, Juliano Sierra and colleagues, with an educational aba from [employer]. SHAHEED-7 Assessment Billing SHAHEED-7 Assessment Tool: SHAHEED-7 Assessment 53361 Physical exam (Primary Care) Vital Signs: Last Vital Signs Temp 98.4 F 04/24/25 09:15 Pulse 78 04/24/25 09:15 BP 118/80 04/24/25 09:15 Pulse Ox 98 04/24/25 09:15 Oxygen Delivery Method Room Air 04/24/25 09:15 Tobacco/Smoking Status: Tobacco use Status Tobacco use date assessed 11/23/24 04/24/25 09:17 Patient Tobacco Use Status Never used Tobacco 04/24/25 09:17 e-Cigarette/Vaping Use Never Used 04/24/25 09:17 PHQ-9: PHQ-9 Score PHQ-9: Total score 0 04/24/25 09:31 Depression Screening Interpretation: Negative Thrive Assessment: Date of Thrive Assessment Date Thrive assessed 08/18/24 04/24/25 09:17 Currently or been in a relationship where the following occur: No concerns reported Results AMB Rapid Strep AMB Rapid Strep Negative Last Edit by Eugene Shahid CMA on 04/24/25 10 :19 Results Reviewed Results Reviewed: Laboratory Last Values Strep Scn Rapid Clinic Negative 04/24/25 10:19 Coding Level of Care Code Est Pt Level 3 (58441) Diagnoses Acute pharyngitis, unspecified etiology J02.9 Pharyngitis/tonsillitis etiology: unspecified etiology Exposure to strep throat Z20.818 Additional Codes SHAHEED-7 Assessment Billing - SHAHEED-7 Assessment Tool: SHAHEED-7 Assessment 19655 ([id number]) Assessment & Plan Assessment & Plan (1) Acute pharyngitis: Code(s): J02.9 - Acute pharyngitis, unspecified Category: Medical Qualifiers: Pharyngitis/tonsillitis etiology: unspecified etiology Qualified Code(s): J02.9 - Acute pharyngitis, unspecified (2) Exposure to strep throat: Code(s): Z20.818 - Contact with and (suspected) exposure to other bacterial communicable diseases Category: Medical Plan History of Present Illness The patient is a 39 year old female presenting with sore throat. Sore Throat: - Onset: Patient reports the sore throat began on Wednesday. - Duration: Symptoms have persisted since onset, which is as of today several days. - Severity: Described as bad. - Associated symptoms: Patient experienced a low-grade fever, reporting a maximum temperature of approximately 100?F, which responded to ibuprofen taken at 5:30 AM on the day of the visit. No reported cough or congestion. - Aggravating factors: No specific aggravating factors identified. - Alleviating factors: Use of ibuprofen noted some relief of fever. No prior use of Chloraseptic throat spray, which was discussed as a possible alleviating treatment. 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 - Family status: Has a son who experiences seasonal allergies. Problem List - acute pharyngitis Patient Instructions - Take prescribed antibiotics (Amoxicillin 500 mg, three times a day) for 10 days; may discontinue after 5-7 days if symptom improvement is significant. - Use warm salt water gargles for sore throat relief. - Consider Chloraseptic throat spray for additional pain relief. Strep test came back negative Orders: Orders AMB Rapid Strep Screen Today Z13.9 - Encounter for screening, unspecified Medications: New amoxicillin 500 mg PO Q8H 30 caps 0RF 10 days
== END 2025-04-24 10:11 | disposition home or self-care (01) ==
LOC: HO.HMCC 09:15
PROVIDERS: PCP Internal Medicine; Visit Provider Internal Medicine
DX: J02.9 Acute pharyngitis, unspecified (principal); Z20.818 Contact with and (suspected) exposure to other bacterial communicable diseases; Z13.9 Encounter for screening, unspecified

== ENCOUNTER → 2025-04-24 09:14 | Outpatient (BNVA) | payer OTHER, SELFPAY | PROVIDERS: PCP Internal Medicine; Visit Provider Internal Medicine | DX: J02.9 Acute pharyngitis, unspecified (principal); Z20.818 Contact with and (suspected) exposure to other bacterial communicable diseases | CPT/HCPCS: 87880; 96127; 99212 ==

== ENCOUNTER → 2025-07-16 14:44 | Outpatient (REF) | payer OTHER, SELFPAY | LOC: HO.CARD 14:44 | PROVIDERS: PCP Internal Medicine; Visit Provider Internal Medicine | DX: I49.3 Ventricular premature depolarization (principal) | CPT/HCPCS: 93242 ==

== ENCOUNTER → 2025-07-16 14:48 | Outpatient (BNV) | payer OTHER, SELFPAY | PROVIDERS: PCP Internal Medicine; Visit Provider Internal Medicine Cardiovascular Disease | DX: I49.3 Ventricular premature depolarization (principal) | CPT/HCPCS: 93244 ==